=== PATIENT | male | born 1940 | race Caucasian/White ===

== ENCOUNTER 2020-09-27 21:28 | Inpatient (IN) | payer OTHER ==
[~2020-09-27] VITALS: Ht 167.6 cm; Wt 79.4 kg
[2020-09-27 22:12] LABS: HEMATOCRIT 28 % (39-51); HEMOGLOBIN 8.6 g/dL (13.5-17.5); MONOCYTES # (AUTO) 0.2 /CMM (0.1-1.30)
[2020-09-27 22:15] LABS: EOSINOPHILS % (AUTO) 0.6 % (0.0-6.0); LYMPHOCYTES # (AUTO) 0.8 /CMM (0.8-4.8); LYMPHOCYTES % (AUTO) 5.9 % (20.0-44.0); MEAN CORPUSCULAR HGB CONC 31 g/dl (31.0-36.0); MEAN CORPUSCULAR VOLUME 97 fL (80-96); MONOCYTES % (AUTO) 1.5 % (2.0-12.0); PLATELET COUNT (AUTO) 248 /CMM (150-450); RED BLOOD CELL COUNT(AUTO) 2.86 MIL/uL (4.5-6.0); WHITE BLOOD COUNT (AUTO) 14.1 K/uL (4.3-11.0)
[2020-09-27 22:20] LABS: BILIRUBIN,URINE Negative (NEGATIVE); COLOR,URINE YELLOW (YELLOW); LEUKOCYTE ESTERASE ,URINE Negative (NEGATIVE); NITRITE, URINE Negative (NEGATIVE); PH,URINE 6.5 (5.0-8.0); PROTEIN,URINE 100 mg/dl (NEGATIVE); UGLUCOSE Negative (NEGATIVE); UROBILINOGEN,URINE 0.2 EU/dL (0.2)
--- NOTE | 2020-09-27 22:22 | NUR ---
[facility]QUELINE FROM [facility]. TO ER BED 5. NON VERBAL, VENT AND TRACH DEPENDENT. BED BOUND. PT WAS SENT BY PMD FOR ABNORMAL LAB. PT HAS A REPROTED ELEVATED BUN OF 108. MD WAS AT THE BEDSIDE FOR EVAL ORDERS RECEIVED, NOTED AND CARRIED OUT. IV LINE ESTABLISHED ON R HAND 20G. PT HAND ANOTHER ONE ON THE R HAND BUT REMOVED DT NOT WORKING. PT IS NOTED WITH GT. SHILEY 8. VENT SETTING AC24 VT500 40%O2 +5PEEP. NO DISTRESS. URINE COLLECTED BY IN AND OUT WITH STRICT STERILE TECHNIQUE. COVID SWAB DONE AND SENT WELL.
[2020-09-27 22:26] LABS: BACTERIA,URINE Moderate /HPF (None Seen); RBC,URINE 0-2 /HPF (0-2); SQUAMOUS EPITHELIAL CELL,UR 0-2 /HPF (None Seen); WBC,URINE 0-2 /HPF (0-3)
[2020-09-27 22:37] LABS: ALANINE AMINOTRANSFERASE 57 U/L (12-78); ALBUMIN 1.8 g/dL (3.4-5.0); ALKALINE PHOSPHATASE 99 U/L (46-116); ASPARTATE AMINOTRANSFERASE 31 U/L (15-37); B-TYPE NATRIURETIC PEPTIDE 630 PG/ML (0-125); BILIRUBIN,DIRECT 0.1 mg/dL (0.0-0.2); BILIRUBIN,TOTAL 0.2 mg/dL (0.2-1.0); CALCIUM, SERUM 8.7 mg/dL (8.5-10.1); CARBON DIOXIDE 29 mmol/L (21-32); CHLORIDE 118 mmol/L (98-107); CREATININE 2.9 mg/dL (0.6-1.3); GLUCOSE 199 mg/dL (74-106); POTASSIUM 4.9 mmol/L (3.5-5.1); SODIUM SERUM 155 mmol/L (136-145); TOTAL PROTEIN, SERUM 6.9 g/dL (6.4-8.2)
[2020-09-27 22:38] LABS: UREA NITROGEN, BLOOD 118 mg/dL (7-18)
[2020-09-27] MEDS ORDERED: IV NS 0.9% 1,000 ML IV ONE (23:30)
[2020-09-28] MEDS ORDERED: HEPA500039 SQ (00:09)
[2020-09-28] MEDS ORDERED: AMIO200T5 GT (00:09)
[2020-09-28] MEDS ORDERED: PRED20TA GT (00:09)
[2020-09-28] MEDS ORDERED: FAMO20TA8 GT (00:09)
[2020-09-28] MEDS ORDERED: INSU100I26 SQ (00:09)
[2020-09-28] MEDS ORDERED: EPOE40002 SQ (00:09)
[2020-09-28] MEDS ORDERED: ASPI-1169 GT (00:09)
[2020-09-28] MEDS ORDERED: CLON0.1T GT (00:09)
[2020-09-28] MEDS ORDERED: LINA5TAB GT (00:09)
[2020-09-28] MEDS ORDERED: INSU100V27 SQ (00:09)
[2020-09-28] MEDS ORDERED: CHOL200074 GT (00:09)
[2020-09-28] MEDS ORDERED: AMLO5TAB4 PO (00:09)
[2020-09-28] MEDS ORDERED: TAMS-12 GT (00:09)
[2020-09-28] MEDS ORDERED: CARV25TA2 GT (00:09)
[2020-09-28] MEDS ORDERED: SIMV-46 GT (00:09)
[2020-09-28] MEDS ORDERED: FINA5TAB3 GT (00:09)
[2020-09-28] MEDS ORDERED: HYDR-4077 GT (00:09)
[2020-09-28] MEDS ORDERED: EPOETIN ALFA (4000 UNIT) 4,000 UNIT/ML VIAL SQ SCH (00:30)
[2020-09-28] MEDS ORDERED: DEXTROSE 50%-WATER 50 ML DISP.SYRIN IV PRN (00:30)
[2020-09-28] MEDS ORDERED: IV NS 0.9% 1,000 ML IV PRN (00:30)
[2020-09-28] MEDS ORDERED: ONDANSETRON HCL/PF 4 MG/2 ML VIAL IVP PRN (01:00)
[2020-09-28] MEDS ORDERED: MAG HYDROX/AL HYDROX/SIMETH 30 ML UDC PO PRN (01:00)
[2020-09-28] MEDS ORDERED: VANCOMYCIN 1.5 GM in IV D5W 500ml IV ONE (01:00)
[2020-09-28] MEDS ORDERED: ACETAMINOPHEN 325 MG TABLET PO PRN (01:00)
[2020-09-28] MEDS ORDERED: MAGNESIUM HYDROXIDE 30 ML UDC PO PRN (01:00)
[2020-09-28] MEDS ORDERED: HYDROCODONE/APAP 5/325MG TABLET PO PRN (01:00)
--- NOTE | 2020-09-28 01:21 | NUR ---
REPORT GIVEN TO MARIBELL FOR ANNI
[2020-09-28 01:30] VITALS: BP 121/65
--- NOTE | 2020-09-28 01:30 | NUR ---
pt transferred to 1st floor
[2020-09-28] MEDS: IV 1/2NS 1000 ML 1,000 ML IV PRN ×3 (02:07→17:27)
[2020-09-28] MEDS ORDERED: VANCOMYCIN 1 GM VIAL ONE (02:15)
--- NOTE | 2020-09-28 02:43 | NUR ---
Pt transported to room 106. Vent plugged in red outlet w alarms set and audible. Trach is secure and patent. Bmv @ hob. No resp distress noted @ this time. Will continue to monitor. Addendum: 09/28/20 at 0245 by IRIS TORRES RT Amended: Links added.
[2020-09-28] MEDS ORDERED: MEROPENEM 1 G VIAL IV ONE (02:46)
[2020-09-28] MEDS ORDERED: MEROPENEM 1 G in IV NS 0.9% 100 ML IV ONE (05:00)
[2020-09-28] MEDS: BLOOD SUGAR DIAGNOSTIC 1 EACH STRIP IN SCH ×4 (05:26→23:20)
--- NOTE | 2020-09-28 07:43 | NUR ---
PT RECEIVED ON PRESCRIBED VENT SETTINGS: SHILEY 8, AC 24, TV 450, 40% FIO2, PEEP 5. NO SOB. PT HAS RIGHT HAND #22 RUNNING 1/2 NS AT 70 ML/HR. NO SIGNS OF INFECTION OR INFILTRATION. PT BUE EDEMATOUS WITH MULTIPLE SKIN BRUISES AND WOUNDS, PICTURES IN CHART AND WOUND CARE CONSULT PREVIOUSLY ORDERED. ALL SAFETY MEASURES IN PLACE. WILL CONTINUE TO MONITOR
[2020-09-28 08:00] VITALS: BP 119/69
[2020-09-28] MEDS: ASPIRIN 81 MG TAB.CHEW GT SCH (08:13)
[2020-09-28] MEDS: FAMOTIDINE (20 MG) 20 MG TABLET GT SCH (08:14)
[2020-09-28] MEDS: CHOLECALCIFEROL 1,000 UNIT TABLET (VIT D3) GT SCH (08:14)
[2020-09-28] MEDS: FINASTERIDE (5 MG) 5 MG TABLET GT SCH (08:14)
[2020-09-28] MEDS: TAMSULOSIN 0.4 MG CAP.SR.24H GT SCH (08:14)
[2020-09-28] MEDS: AMLODIPINE BESYLATE 5 MG TABLET PO SCH ×2 (08:16→17:08)
[2020-09-28] MEDS: HEPARIN SODIUM, PORCINE 5000 UNITS/1 ML VIAL SQ SCH ×2 (08:17→20:23)
[2020-09-28] MEDS: LINAGLIPTIN 5 MG TABLET GT SCH (08:22)
[2020-09-28] MEDS: CLONIDINE HCL 0.1 MG TABLET GT SCH ×2 (08:23→20:23)
[2020-09-28] MEDS: hydrALAZINE HCL 50 MG TABLET GT SCH ×3 (08:36→17:00)
[2020-09-28] MEDS ORDERED: AMIODARONE HCL 200 MG TABLET GT SCH (09:00)
[2020-09-28] MEDS ORDERED: SIMVASTATIN 20 MG TABLET GT SCH (09:00)
[2020-09-28 10:31] LABS: BASOPHILS % (AUTO) 0.1 % (0.0-2.0); EOSINOPHILS % (AUTO) 0.2 % (0.0-6.0); HEMATOCRIT 26 % (39-51); HEMOGLOBIN 8.1 g/dL (13.5-17.5); LYMPHOCYTES # (AUTO) 1.1 /CMM (0.8-4.8); LYMPHOCYTES % (AUTO) 8.3 % (20.0-44.0); MEAN CORPUSCULAR HGB CONC 31 g/dl (31.0-36.0); MEAN CORPUSCULAR VOLUME 98 fL (80-96); MONOCYTES # (AUTO) 0.6 /CMM (0.1-1.30); MONOCYTES % (AUTO) 4.5 % (2.0-12.0); NEUTROPHILS # (AUTO) 11.1 /CMM (1.8-8.9); NEUTROPHILS % (AUTO) 86.9 % (43.0-81.0); PLATELET COUNT (AUTO) 229 /CMM (150-450); RED BLOOD CELL COUNT(AUTO) 2.69 MIL/uL (4.5-6.0); WHITE BLOOD COUNT (AUTO) 12.8 K/uL (4.3-11.0)
[2020-09-28 11:12] LABS: THYROID STIMULATING HORMONE 1.029 uIU/mL (0.358-3.74)
[2020-09-28 11:34] LABS: ALANINE AMINOTRANSFERASE 49 U/L (12-78); ALBUMIN 1.8 g/dL (3.4-5.0); ALKALINE PHOSPHATASE 87 U/L (46-116); ASPARTATE AMINOTRANSFERASE 29 U/L (15-37); BILIRUBIN,TOTAL 0.2 mg/dL (0.2-1.0); CALCIUM, SERUM 8.3 mg/dL (8.5-10.1); CARBON DIOXIDE 26 mmol/L (21-32); CHLORIDE 118 mmol/L (98-107); CREATININE 2.6 mg/dL (0.6-1.3); GLUCOSE 155 mg/dL (74-106); MAGNESIUM 3.7 mg/dL (1.8-2.4); PHOSPHORUS 5.9 mg/dL (2.5-4.9); POTASSIUM 4.8 mmol/L (3.5-5.1); TOTAL PROTEIN, SERUM 6.9 g/dL (6.4-8.2)
[2020-09-28] MEDS: GLUCERNA 1.2 1,000 ML BOTTLE GT PRN (11:45)
[2020-09-28 12:00] VITALS: BP 122/63
[2020-09-28 12:18] LABS: SODIUM SERUM 156 mmol/L (136-145); UREA NITROGEN, BLOOD 108 mg/dL (7-18)
--- NOTE | 2020-09-28 12:38 | NUR ---
dr. boo notified regarding elevated sodium no new orders.
--- NOTE | 2020-09-28 13:39 | NUR ---
DR DUGGAN AWARE OF SODIUM 156 AND BUN/CR OF 108/2.6. NO NEW ORDERS RECEIVED. PT ALREADY RUNNING 1/2 NS @ 70 ML/HR ORDERED
[2020-09-28 16:00] VITALS: BP 109/56
[2020-09-28] MEDS: MEROPENEM 1 G in IV NS 0.9% 100 ML IV SCH (17:08)
[2020-09-28] MEDS: Z GUARD REMEDY 2 OZ OINT TP PRN (17:30)
--- NOTE | 2020-09-28 17:30 | NUR ---
PT 1700 HYDRALAZINE NON-ADMIN, BP 109/56, NORVASC GIVEN
[2020-09-28 17:31] LABS: BILIRUBIN,URINE NEGATIVE (NEGATIVE); COLOR,URINE YELLOW (YELLOW); LEUKOCYTE ESTERASE ,URINE NEGATIVE (NEGATIVE); NITRITE, URINE NEGATIVE (NEGATIVE); PROTEIN,URINE 30 mg/dl (NEGATIVE); UGLUCOSE NEGATIVE (NEGATIVE); UROBILINOGEN,URINE 0.2 EU/dL (0.2)
[2020-09-28 17:41] LABS: CREATININE, URINE 33.1 MG/DL (30.0-125.0)
--- NOTE | 2020-09-28 18:28 | NUR ---
PT REMAINS IN BED ON VENT SETTINGS, SHILEY #8, AC 24, TV 450, FIO2 40%, PEEP 0. NO RESPIRATORY DISTRESS OR SOB. ALL WOUND CARE COMPLETED THIS SHIFT; PT STILL AWAITS WOUND CONSULT. PT ON MONITOR SHOWING SB-SR- 50-60. PT HAS METZGER DRAINING YELLOW CLEAR URINE. PT GT RUNNING GLUCERNA 1.2 AT 50 ML/HR. PT RIGHT HAND 22 RUNNING 1/2 NS AT 70 ML/HR. NO SIGNS OF INFECTION OR INFILTRATION. ALL NEEDS TO BE ENDORSED TO ONCOMING RN
[2020-09-28 18:43] LABS: BACTERIA,URINE RARE /HPF (None Seen); RBC,URINE 0-2 /HPF (0-2); SQUAMOUS EPITHELIAL CELL,UR 0-2 /HPF (None Seen)
[2020-09-28 18:47] LABS: EOSINOPHIL,URINE None Seen
--- NOTE | 2020-09-28 19:20 | NUR ---
RECEIVED PT ON BED OPEN EYES TO STIMULI, ON TRACH/VENT SETTING PER MD FIO2 40% SPO2 100% NO DISTRESS OR PAIN NOTED, TELE MONITOR READS SINUS HEVER 50'S HAVE GTUBE ON PLACE, PLACEMENT AND RESIDUAL CHECKED, RESIDUAL 5ML WITH ONGOING GLUCERNA @ 50ML/HR ,HAVE METZGER DRAINING YELLOW URINE THRU GRAVITY, HAVE RIGHT HAND # 22 PATENT AND FLUSHED WITH ONGOING 1/2 NS @ 70ML/HR INFUSING WELL BED ON LOWEST POSITION NAD LOCKED SIDE RAILS UP X2 CALL LIGHT WITHIN REACH WILL CONT TO MONITOR
--- NOTE | 2020-09-28 19:58 | NUR ---
RT pt received on mechanical vent with current settings. trached, shiley 8 cuffed. vent plugged in to red outlet. trach secure. ambu bag at [facility]. spare trach at bedside. minimal thick white secretions suctioned via trach. no sob, no resp distress at this time. will continue to monitor.
[2020-09-28 20:00] VITALS: BP 106/61
[2020-09-28] MEDS: INSULIN REGULAR, HUMAN 100 UNIT/ML 3 ML VIAL SQ PRN (23:20)
[2020-09-29] VITALS: BP 113/54
[2020-09-29 04:00] VITALS: BP 101/57
[2020-09-29] MEDS: MEROPENEM 1 G in IV NS 0.9% 100 ML IV SCH ×2 (04:02→16:49)
[2020-09-29] MEDS: Z GUARD REMEDY 2 OZ OINT TP PRN (04:03)
[2020-09-29] MEDS: GLUCERNA 1.2 1,000 ML BOTTLE GT PRN (05:30)
[2020-09-29] MEDS: VANCOMYCIN 1 GM in IV D5W 250 ML IV SCH (05:30)
[2020-09-29] MEDS: IV 1/2NS 1000 ML 1,000 ML IV PRN ×2 (05:31→22:31)
[2020-09-29] MEDS: BLOOD SUGAR DIAGNOSTIC 1 EACH STRIP IN SCH ×4 (05:47→23:47)
[2020-09-29] MEDS: INSULIN REGULAR, HUMAN 100 UNIT/ML 3 ML VIAL SQ PRN ×3 (05:49→23:39)
[2020-09-29 06:20] LABS: BASOPHILS # (AUTO) 0.1 /CMM (0.0-0.2); BASOPHILS % (AUTO) 0.5 % (0.0-2.0); EOSINOPHILS % (AUTO) 4.1 % (0.0-6.0); HEMATOCRIT 27 % (39-51); HEMOGLOBIN 8.6 g/dL (13.5-17.5); LYMPHOCYTES # (AUTO) 0.9 /CMM (0.8-4.8); LYMPHOCYTES % (AUTO) 7.4 % (20.0-44.0); MEAN CORPUSCULAR HGB CONC 32 g/dl (31.0-36.0); MEAN CORPUSCULAR VOLUME 96 fL (80-96); MONOCYTES # (AUTO) 0.7 /CMM (0.1-1.30); MONOCYTES % (AUTO) 5.9 % (2.0-12.0); NEUTROPHILS % (AUTO) 82.1 % (43.0-81.0); PLATELET COUNT (AUTO) 268 /CMM (150-450); RED BLOOD CELL COUNT(AUTO) 2.81 MIL/uL (4.5-6.0); WHITE BLOOD COUNT (AUTO) 12.1 K/uL (4.3-11.0)
--- NOTE | 2020-09-29 06:48 | NUR ---
PT ON BED OPEN EYES TO STIMULI STILL ON TRACH VENT SETTING PER MD SPO2 98 % TELE MONITOR READS SINUS HEVER 50S NO DISTRESS NOTED NO PAIN NOTED NO SIGNIFICANT CHANGES ON CONDITION NOTED ALL NEEDS ATTENDED WOUND TREATMENT DONE, BED ON LOWEST POSITION AND LOCKED SIDE RAILS UP X2 CALL LIGHT WITHIN REACH WILL ENDORSED TO AM SHIFT NURSE
[2020-09-29 06:58] LABS: ALANINE AMINOTRANSFERASE 47 U/L (12-78); ALBUMIN 1.7 g/dL (3.4-5.0); ALKALINE PHOSPHATASE 100 U/L (46-116); ASPARTATE AMINOTRANSFERASE 28 U/L (15-37); BILIRUBIN,TOTAL 0.2 mg/dL (0.2-1.0); CALCIUM, SERUM 8.2 mg/dL (8.5-10.1); CARBON DIOXIDE 25 mmol/L (21-32); CHLORIDE 118 mmol/L (98-107); CREATININE 2.2 mg/dL (0.6-1.3); GLUCOSE 176 mg/dL (74-106); MAGNESIUM 3.5 mg/dL (1.8-2.4); PHOSPHORUS 5.5 mg/dL (2.5-4.9); POTASSIUM 4.8 mmol/L (3.5-5.1); SODIUM SERUM 152 mmol/L (136-145); TOTAL PROTEIN, SERUM 6.1 g/dL (6.4-8.2)
[2020-09-29 07:00] LABS: UREA NITROGEN, BLOOD 97 mg/dL (7-18)
[2020-09-29 07:03] LABS: CHOLESTEROL 91 mg/dL (<200); CREATINE KINASE, TOTAL 48 U/L (39-308); FERRITIN 811 ng/mL (8-388); HDL CHOLESTEROL 17 mg/dL (40-60); LDL 47 mg/dL (0-99); TRIGLYCERIDES 341 mg/dL (30-150)
--- NOTE | 2020-09-29 08:30 | NUR ---
RESOURCE MANAGER NOTES PATIENT RECEIVED FROM RN. PATIENT IN BED, NON-VERBAL, ABLE TO OPEN AND CLOSE EYES. TRACH INTACT AND IN PLACE, TOLERATING SETTINGS WELL, NO RESPIRATORY DISTRESS NOTED AT THIS TIME. PATIENT SKIN WARM AND DRY TO TOUCH WITH MULTIPLE WOUNDS NOTED. ON AUTOMOTIVE SERVICE MANAGEMENT TEACHER. METZGER CATHETER INTACT AND IN PLACE. G-TUBE SITE CLEAN AND DRY, CURRENTLY INFUSING FEEDING AT 50mL/hr NO RESIDUAL NOTED. PATIENT PRESENTING WITH NO PAIN OR DISCOMFORT AT THIS TIME. SAFETY PRECAUTIONS IMPLEMENTED WITH BED LOCKED, BED IN THE LOWEST POSITION, BILATERAL SIDE RAILS UP, HOB ELEVATED, BED ALARM ON, AND CALL LIGHT WITH IN EASY REACH. WILL CONTINUE TO MONITOR PATIENT.
[2020-09-29] MEDS: hydrALAZINE HCL 50 MG TABLET GT SCH ×3 (09:00→16:49)
[2020-09-29] MEDS: AMLODIPINE BESYLATE 5 MG TABLET PO SCH ×2 (09:00→16:49)
[2020-09-29] MEDS: CLONIDINE HCL 0.1 MG TABLET GT SCH ×2 (09:00→21:43)
[2020-09-29] MEDS: FINASTERIDE (5 MG) 5 MG TABLET GT SCH (09:21)
[2020-09-29] MEDS: LINAGLIPTIN 5 MG TABLET GT SCH (09:21)
[2020-09-29] MEDS: FAMOTIDINE (20 MG) 20 MG TABLET GT SCH (09:21)
[2020-09-29] MEDS: ASPIRIN 81 MG TAB.CHEW GT SCH (09:21)
[2020-09-29] MEDS: TAMSULOSIN 0.4 MG CAP.SR.24H GT SCH (09:21)
[2020-09-29] MEDS: CHOLECALCIFEROL 1,000 UNIT TABLET (VIT D3) GT SCH (09:22)
[2020-09-29] MEDS: AMIODARONE HCL 200 MG TABLET GT SCH (09:22)
[2020-09-29] MEDS: HEPARIN SODIUM, PORCINE 5000 UNITS/1 ML VIAL SQ SCH ×2 (09:24→21:45)
[2020-09-29 09:30] VITALS: BP 118/51
[2020-09-29 12:00] VITALS: BP 117/73
[2020-09-29 16:00] VITALS: BP 127/55
--- NOTE | 2020-09-29 18:40 | NUR ---
STEEL HANDLER NOTES PATIENT IN BED RESTING COMFORTABLY, NON-VERBAL, ABLE TO OPEN AND CLOSE EYES. TRACH INTACT AND IN PLACE, TOLERATING SETTINGS WELL, NO RESPIRATORY DISTRESS NOTED AT THIS TIME. PATIENT SKIN KEPT CLEAN, WARM AND DRY TO TOUCH WITH MULTIPLE WOUNDS NOTED. ON CAM MAKER. METZGER CATHETER INTACT AND IN PLACE. G-TUBE SITE CLEAN AND DRY, CURRENTLY INFUSING FEEDING AT 50mL/hr NO RESIDUAL NOTED. PATIENT PRESENTING WITH NO PAIN OR DISCOMFORT AT THIS TIME. MET ALL OF PATIENT'S NEEDS. IV ACCESS INTACT AND PATENT. SAFETY PRECAUTIONS IMPLEMENTED WITH BED LOCKED, BED IN THE LOWEST POSITION, BILATERAL SIDE RAILS UP, HOB ELEVATED, BED ALARM ON, AND CALL LIGHT WITH IN EASY REACH. WILL ENDORSE PLAN OF CARE TO UPCOMING RN.
--- NOTE | 2020-09-29 18:45 | NUR ---
MOBILE ELECTRONICS INSTALLER NOTE PATIENT ARRIVED FROM [place] BY BED. PATIENT ON VENT, TOLERATING VENT SETTINGS WELL. PATIENT IN BED RESTING COMFORTABLY. PATIENT IN NO ACUTE DISTRESS. NO SOB NOTED. PATIENT BREATHING IS EVEN AND UNLABORED. PATIENT SAFETY PRECAUTIONS IN PLACE. PATIENT BP 135/58, HR 71 SINUS RHYTHM, RR 18, SPO2 100%. PATIENT BED IS LOCKED AND IN LOWEST POSITION. CALL LIGHT WITHIN REACH. WILL ENDORSE CARE TO PM SHIFT FOR ANNI.
--- NOTE | 2020-09-29 19:52 | NUR ---
TRANSPORT AIDE OPENING NOTES PATIENT A/OX1; OPENS EYES TO NAME. PATIENT ON VENT, TOLERATING VENT SETTINGS WELL. ON EXTERNAL CARDIAC TELE MONITORING; READS SR AND HR AT 70'S. PATIENT IN BED RESTING COMFORTABLY. PATIENT IN NO ACUTE DISTRESS. NO SOB NOTED. PATIENT BREATHING IS EVEN AND UNLABORED. METZGER CATHETER PATENT AND INTACT; DRAINING CLEAR YELLOW URINE. GTUBE PEG PATENT AND INTACT; GLUCERNA 1.2 @ 50ML/HR. IV ON R HAND #22 INFUSING 1/2 NS @ 70ML/HR; PATENT AND INTACT. PATIENT SAFETY PRECAUTIONS IN PLACE; PATIENT BED IS LOCKED AND IN LOWEST POSITION. CALL LIGHT WITHIN REACH. SIDE RAILS UPX3. WILL CONTINUE PLAN OF CARE.
[2020-09-29 20:00] VITALS: BP_SYST 115; BP_SYST 125; BP_DIAS 57; BP_DIAS 71
[2020-09-30] VITALS: BP_SYST 125; BP_SYST 137; BP_DIAS 57; BP_DIAS 63
--- NOTE | 2020-09-30 02:30 | NUR ---
CUSTOMER GREETER NOTES LAB CALLED AND REPORTED PATIENT NOTED WITH POSITIVE BLOOD CULTURE OF GRAM POSITIVE COCCI IN CLUSTERS. NOTIFIED EHNRY JEFFERS NP. WILL ENDORSE IN AM TO NOTIFY INFECTIOUS DISEASE SPECIALIST.
[2020-09-30 04:00] VITALS: BP_SYST 136; BP_SYST 137; BP_DIAS 57; BP_DIAS 62
[2020-09-30] MEDS: MEROPENEM 1 G in IV NS 0.9% 100 ML IV SCH (05:58)
[2020-09-30] MEDS: VANCOMYCIN 1 GM in IV D5W 250 ML IV SCH (07:05)
[2020-09-30 07:06] LABS: PTH, INTACT 56 pg/mL (15-65)
[2020-09-30] MEDS: BLOOD SUGAR DIAGNOSTIC 1 EACH STRIP IN SCH ×4 (07:34→23:50)
[2020-09-30] MEDS: INSULIN REGULAR, HUMAN 100 UNIT/ML 3 ML VIAL SQ PRN ×4 (07:35→23:48)
[2020-09-30] MEDS: GLUCERNA 1.2 1,000 ML BOTTLE GT PRN (07:35)
--- NOTE | 2020-09-30 07:38 | NUR ---
MS/RN OPENING NOTES RECEIVED PATIENT ON BED, AWAKE ALERT AND ORIENTED X1. PATIENT IS ON TRACH AND VENT DEPENDENT AT THE PRESCRIBED SETTINGS. PATIENT IN NO APPARENT RESPIRATORY DISTRESS NOTED. NO SIGN AND SYMPTOM OF PAIN AT THIS TIME. WILL CONTINUE TO MONITOR.
[2020-09-30 07:40] LABS: ALANINE AMINOTRANSFERASE 33 U/L (12-78); ALBUMIN 1.6 g/dL (3.4-5.0); ALKALINE PHOSPHATASE 86 U/L (46-116); ASPARTATE AMINOTRANSFERASE 24 U/L (15-37); BILIRUBIN,TOTAL 0.2 mg/dL (0.2-1.0); CALCIUM, SERUM 8.3 mg/dL (8.5-10.1); CARBON DIOXIDE 22 mmol/L (21-32); CHLORIDE 116 mmol/L (98-107); CREATININE 1.8 mg/dL (0.6-1.3); GLUCOSE 179 mg/dL (74-106); MAGNESIUM 3.4 mg/dL (1.8-2.4); PHOSPHORUS 4.6 mg/dL (2.5-4.9); POTASSIUM 5.2 mmol/L (3.5-5.1); SODIUM SERUM 147 mmol/L (136-145); TOTAL PROTEIN, SERUM 5.9 g/dL (6.4-8.2); UREA NITROGEN, BLOOD 72 mg/dL (7-18)
[2020-09-30 07:48] LABS: BASOPHILS # (AUTO) 0.1 /CMM (0.0-0.2); BASOPHILS % (AUTO) 0.5 % (0.0-2.0); EOSINOPHILS % (AUTO) 7.7 % (0.0-6.0); HEMATOCRIT 27 % (39-51); HEMOGLOBIN 8.7 g/dL (13.5-17.5); LYMPHOCYTES % (AUTO) 10.7 % (20.0-44.0); MEAN CORPUSCULAR HGB CONC 32 g/dl (31.0-36.0); MEAN CORPUSCULAR VOLUME 96 fL (80-96); MONOCYTES # (AUTO) 0.8 /CMM (0.1-1.30); MONOCYTES % (AUTO) 8.2 % (2.0-12.0); NEUTROPHILS # (AUTO) 7.1 /CMM (1.8-8.9); NEUTROPHILS % (AUTO) 72.9 % (43.0-81.0); PLATELET COUNT (AUTO) 283 /CMM (150-450); RED BLOOD CELL COUNT(AUTO) 2.82 MIL/uL (4.5-6.0); WHITE BLOOD COUNT (AUTO) 9.7 K/uL (4.3-11.0)
[2020-09-30 08:00] VITALS: BP 145/66
--- NOTE | 2020-09-30 08:35 | NUR ---
ACCOUNT EXECUTIVE CLOSING NOTES PATIENT A/OX1; OPENS EYES TO NAME. PATIENT ON VENT, TOLERATING VENT SETTINGS WELL. ON EXTERNAL CARDIAC TELE MONITORING; READS SR AND HR AT 67. PATIENT IN BED RESTING COMFORTABLY. PATIENT IN NO ACUTE DISTRESS. NO SOB NOTED. PATIENT BREATHING IS EVEN AND UNLABORED. METZGER CATHETER PATENT AND INTACT; DRAINING CLEAR YELLOW URINE. GTUBE PEG PATENT AND INTACT; GLUCERNA 1.2 @ 50ML/HR. IV ON R HAND #22; INFUSING 1/2 NS @ 70ML/HR; PATENT AND INTACT. PATIENT SAFETY PRECAUTIONS IN PLACE; PATIENT BED IS LOCKED AND IN LOWEST POSITION. CALL LIGHT WITHIN REACH. SIDE RAILS UPX3. ENDORSED ANNI TO ONCOMING MORNING RN.
[2020-09-30] MEDS: CHOLECALCIFEROL 1,000 UNIT TABLET (VIT D3) GT SCH (09:04)
[2020-09-30] MEDS: TAMSULOSIN 0.4 MG CAP.SR.24H GT SCH (09:05)
[2020-09-30] MEDS: FAMOTIDINE (20 MG) 20 MG TABLET GT SCH (09:05)
[2020-09-30] MEDS: CLONIDINE HCL 0.1 MG TABLET GT SCH ×2 (09:05→21:00)
[2020-09-30] MEDS: FINASTERIDE (5 MG) 5 MG TABLET GT SCH (09:05)
[2020-09-30] MEDS: AMIODARONE HCL 200 MG TABLET GT SCH (09:05)
[2020-09-30] MEDS: ASPIRIN 81 MG TAB.CHEW GT SCH (09:05)
[2020-09-30] MEDS: hydrALAZINE HCL 50 MG TABLET GT SCH ×3 (09:06→16:38)
[2020-09-30] MEDS: AMLODIPINE BESYLATE 5 MG TABLET PO SCH ×2 (09:06→16:38)
[2020-09-30] MEDS: LINAGLIPTIN 5 MG TABLET GT SCH (09:06)
[2020-09-30] MEDS: HEPARIN SODIUM, PORCINE 5000 UNITS/1 ML VIAL SQ SCH ×2 (09:10→22:37)
[2020-09-30] MEDS: IV 1/2NS 1000 ML 1,000 ML IV PRN (09:35)
[2020-09-30 12:00] VITALS: BP 117/54
--- NOTE | 2020-09-30 12:53 | NUR ---
TELE/RN NOTES BP 101/47 P 58 HYDRALAZINE 50MG 1 TAB WAS WITH HELD. WILL CONTINUE TO MONIOTR.
[2020-09-30 13:44] LABS: BAND % (MANUAL) 1 % (0.0-5.0); EOSINOPHILS % (MANUAL) 12 % (0-4); LYMPHOCYTES % (MANUAL) 6 % (16-48); METAMYELOCYTES % 1 % (0-0); MONOCYTES % (MANUAL) 5 % (0-11.0); MYELOCYTES % 1 % (0-0); NEUTROPHILS % (MANUAL) 74 (42-76)
[2020-09-30 14:07] LABS: *SPE A/G RATIO 0.5 (0.7-1.7); *SPE ALBUMIN 1.9 g/dL (2.9-4.4); *SPE ALPHA-1-GLOBULIN 0.2 g/dL (0.0-0.4); *SPE BETA GLOBULIN 0.9 g/dL (0.7-1.3); *SPE GLOBULIN, TOTAL 3.7 g/dL (2.2-3.9); *SPE M-SPIKE Not Observed g/dL (Not Observed); *SPEGAMMA GLOBULIN 1.5 g/dL (0.4-1.8)
[2020-09-30 16:00] VITALS: BP 123/58
--- NOTE | 2020-09-30 19:02 | NUR ---
TELE/RN CLOSING NOTES PATIENT IS ON BED. PATIENT IS ON VENT AND TRACH DEPENDENT AT THE PRESCRIBED SETTINGS. PATIENT IN NO APPARENT RESPIRATORY DISTRESS NOTED. NO SIGN AND SYMPTOM OF PAIN NOTED AT THIS TIME. TELE MONITOR READING SINUS HEVER 59 BPM. SEEN AND EXAMINED BY MD WITH ORDERS MADE AND CARRIED OUT. ALL DUE MEDICATIONS WAS GIVEN. SAFETY PRECAUTIONS WAS IN PLACED. BED IN LOWEST POSITION AND LOCKED. SIDE RAILS UP X2. CALL LIGHT WITHIN REACH. WILL ENDORSED TO SUPERVISOR SHAVING AND SPLITTING FOR ANNI.
[2020-09-30 20:00] VITALS: BP 99/56
[2020-10-01] VITALS: BP 103/48
[2020-10-01] MEDS: GLUCERNA 1.2 1,000 ML BOTTLE GT PRN (03:52)
[2020-10-01 04:00] VITALS: BP 106/54
--- NOTE | 2020-10-01 04:02 | NUR ---
RIGHT HAND IV REMOVED BY LEX BUCHANAN LAST NIGHT AT 2134. MIDLINE INSERTED BY LEX GALAN ON THE RIGHT UPPER ARM.
[2020-10-01] MEDS: INSULIN REGULAR, HUMAN 100 UNIT/ML 3 ML VIAL SQ PRN ×2 (06:38→11:56)
[2020-10-01] MEDS: BLOOD SUGAR DIAGNOSTIC 1 EACH STRIP IN SCH ×3 (06:40→18:01)
--- NOTE | 2020-10-01 07:46 | NUR ---
MS/RN OPENING NOTES RECEIVED PATIENT ON BED,NONVERBAL. PATIENT IS ON TRACH AND VENT DEPENDENT AT THE PRESCRIBED SETTINGS. PATIENT IN NO APPARENT RESPIRATORY DISTRESS NOTED. NO SIGN AND SYMPTOM OF PAIN AT THIS TIME. WILL CONTINUE TO MONITOR.
[2020-10-01 08:00] VITALS: BP 109/64
[2020-10-01] MEDS ORDERED: VANCOMYCIN 1 GM in IV D5W 250 ML IV SCH (08:00)
[2020-10-01 08:29] LABS: CALCIUM, SERUM 8.8 mg/dL (8.5-10.1); CARBON DIOXIDE 23 mmol/L (21-32); CHLORIDE 116 mmol/L (98-107); CREATININE 1.7 mg/dL (0.6-1.3); GLUCOSE 188 mg/dL (74-106); POTASSIUM 5.4 mmol/L (3.5-5.1); SODIUM SERUM 148 mmol/L (136-145); UREA NITROGEN, BLOOD 63 mg/dL (7-18)
[2020-10-01 08:32] LABS: MAGNESIUM 3.2 mg/dL (1.8-2.4); PHOSPHORUS 4.8 mg/dL (2.5-4.9)
--- NOTE | 2020-10-01 08:48 | NUR ---
WOUND CARE CONSULT: PT PRESENTS WITH MULTIPLE WOUNDS, PRESENT ON ADMISSION INCLUDING UNSTAGEABLE SACRAL ULCER, RT CLAVICLE ULCER AND LOWER EXTREMITY WOUNDS. RECOMMEND SURGICAL AND DPM CONSULTS. DR ERNESTINE JENKINS AND DR SMITH NOTIFIED OF CONSULT REQUESTS. RECOMMENDATIONS MADE FOR WOUND CARE AND SKIN PROTECTION. DISCUSSED WITH NURSING STAFF. DEFER TO PODIATRY FOR LOWER EXTREMITIES. FIRST STEP LOW AIRLOSS MATTRESS IS ON ORDER. MD IN AGREEMENT WITH PLAN OF CARE.
[2020-10-01] MEDS: ASPIRIN 81 MG TAB.CHEW GT SCH (08:49)
[2020-10-01] MEDS: TAMSULOSIN 0.4 MG CAP.SR.24H GT SCH (08:49)
[2020-10-01] MEDS: LINAGLIPTIN 5 MG TABLET GT SCH (08:49)
[2020-10-01] MEDS: CHOLECALCIFEROL 1,000 UNIT TABLET (VIT D3) GT SCH (08:49)
[2020-10-01] MEDS: AMIODARONE HCL 200 MG TABLET GT SCH (08:49)
[2020-10-01] MEDS: FINASTERIDE (5 MG) 5 MG TABLET GT SCH (08:49)
[2020-10-01] MEDS: FAMOTIDINE (20 MG) 20 MG TABLET GT SCH (08:49)
[2020-10-01] MEDS: CLONIDINE HCL 0.1 MG TABLET GT SCH ×2 (08:50→21:29)
[2020-10-01] MEDS: hydrALAZINE HCL 50 MG TABLET GT SCH ×3 (08:51→17:14)
[2020-10-01] MEDS: HEPARIN SODIUM, PORCINE 5000 UNITS/1 ML VIAL SQ SCH ×2 (08:52→22:00)
--- NOTE | 2020-10-01 08:53 | NUR ---
MS/RN NOTES BP 109/64 P 71 NORVASC 5MG 1 TAB P.O. HYDRALAZINE 50MG 1 TAB P.O. AND CATAPRES 0.1 MG 1 TAB, HEMOGLOBIN 8.7 HEMATOCRIT 27 PLATELET 287.HEPARIN 5000 UNIT SUBCUTANEOUS MEDICATIONS WAS WITH HELD. WILL CONTINUE TO MONITOR.
[2020-10-01] MEDS ORDERED: HYDROGEL DRESSING 90 GM TUBE TP PRN (09:00)
[2020-10-01] MEDS: AMLODIPINE BESYLATE 5 MG TABLET PO SCH ×2 (09:00→17:15)
[2020-10-01] MEDS: DAKINS QUARTER STRENGTH (0.125%) 480 ML BOTTLE TOP SCH (10:38)
[2020-10-01] MEDS: HYDROGEL DRESSING 90 GM TUBE TP SCH (10:38)
[2020-10-01] MEDS ORDERED: COLLOIDAL OATMEAL/LOTION 354 ML BOTTLE TP PRN (11:00)
[2020-10-01 12:00] VITALS: BP 104/57
--- NOTE | 2020-10-01 12:09 | NUR ---
TELE/RN NOTES BP 104/57 P 66 HYDRALAZINE 50MG 1 TAB P.O. WAS NOT GIVEN. WILL CONTINUE TO MONITOR.
[2020-10-01 16:00] VITALS: BP 127/68
[2020-10-01] MEDS ORDERED: CLOTRIMAZOLE 1% 15 GM TUBE TP SCH (17:00)
[2020-10-01] MEDS: CLOTRIMAZOLE 1% 15 GM TUBE TP SCH (17:16)
--- NOTE | 2020-10-01 18:00 | NUR ---
TELE/RN NOTES PATIENT WOUND HAVE FRESH BLOOD NOTED. WILL ENDORSED TO SENIOR PRODUCT DESIGNER RN.
--- NOTE | 2020-10-01 18:52 | NUR ---
MS/RN CLOSING NOTES PATIENT IS ON BED, NONVERBAL. PATIENT IS ON TRACH AND VENT DEPENDENT AT THE PRESCRIBED SETTINGS, SATURATION 100%. PATIENT IN NO APPARENT RESPIRATORY DISTRESS NOTED. NO SIGN AND SYMPTOM OF PAIN NOTED AT THIS TIME. GTUBE FEEDING OF GLUCERNA AT 50ML/HR ON AND INFUSING WELL. SEEN AND EXAMINED BY MD WITH ORDERS MADE AND CARRIED OUT. ALL DUE MEDICATIONS WAS GIVEN. SAFETY PRECAUTIONS WAS IN PLACED. BED IN LOWEST POSITION AND LOCKED. SIDE RAILS WAS LOCKED X2. WILL ENDORSED TO SPECIAL EVENTS FUNDRAISER FOR ANNI.
--- NOTE | 2020-10-01 19:30 | NUR ---
TELE SCROLL ASSEMBLER INITIAL NOTES RECEIVED REPORT FROM AM NURSE PHUONG/RN AND SAW PT IN BED ON SEMI FOWLERS POSITION WITH SIDE RAILS X2 UP. PATIENT ON MECHANICAL VENT SHILEY#8, TV 450, PEEP0, AC24 AND FIO2 30%. SET BY RT ORDERED. PT RESTING AT THIS TIME NO SIGNS OF ANY DISTRESS NOTED WITH G-TUBE FEEDING AT 50ML/HR NO ASPIRATION NOTED AND NO RESIDUAL NOTED WELL. HE HAS MEDLINE ON HIS RIGHT UPPER ARM PATENT AND INTACT. SINUS RHYTHM PER MONITOR , VITAL SIGNS WITHIN NORMAL LIMIT. KEPT HIM WARM AND COMFORTABLE AT ALL TIMES. WILL CONTINUE MONITORING.
[2020-10-01 20:49] VITALS: BP 135/62
--- NOTE | 2020-10-01 22:00 | NUR ---
ms ameena notes got ordered from Dr Eileen segura to hold the heparin dose due at this time but let the daytime provider tomorrow if they want to DC.
--- NOTE | 2020-10-02 00:15 | NUR ---
tele tree climber notes Blood sugar 197, 3 units of insulin given juan a SQ as ordered. Pt still on g-tube feeding Flush with 200ml water as ordered. no signs of hyper glycemia noted. Tele SR per monitor. will continue monitoring.
[2020-10-02] MEDS: BLOOD SUGAR DIAGNOSTIC 1 EACH STRIP IN SCH ×4 (00:23→17:46)
[2020-10-02] MEDS: INSULIN REGULAR, HUMAN 100 UNIT/ML 3 ML VIAL SQ PRN ×5 (00:27→23:40)
[2020-10-02 00:57] VITALS: BP 114/50
[2020-10-02] MEDS: GLUCERNA 1.2 1,000 ML BOTTLE GT PRN ×2 (04:59→16:22)
[2020-10-02 06:45] LABS: BASOPHILS # (AUTO) 0.1 /CMM (0.0-0.2); BASOPHILS % (AUTO) 0.6 % (0.0-2.0); EOSINOPHILS % (AUTO) 8.4 % (0.0-6.0); HEMATOCRIT 27 % (39-51); HEMOGLOBIN 8.8 g/dL (13.5-17.5); LYMPHOCYTES % (AUTO) 10.8 % (20.0-44.0); MEAN CORPUSCULAR HGB CONC 33 g/dl (31.0-36.0); MEAN CORPUSCULAR VOLUME 95 fL (80-96); MONOCYTES # (AUTO) 0.7 /CMM (0.1-1.30); MONOCYTES % (AUTO) 8.1 % (2.0-12.0); NEUTROPHILS # (AUTO) 6.6 /CMM (1.8-8.9); NEUTROPHILS % (AUTO) 72.1 % (43.0-81.0); PLATELET COUNT (AUTO) 306 /CMM (150-450); RED BLOOD CELL COUNT(AUTO) 2.82 MIL/uL (4.5-6.0); WHITE BLOOD COUNT (AUTO) 9.1 K/uL (4.3-11.0)
--- NOTE | 2020-10-02 07:00 | NUR ---
TELE ASSOCIATE PROFESSOR OF ENGINEERING CLOSING NOTES PT STABLE THROUGHOUT THE NIGHT. SINUS RHYTHM ON TELE MONITOR. G-TUBE FEEDING TOLERATED WELL, NO ASPIRATION NOTED. BLOOD SUGAR 166 THIS 6 AM AND 3 UNITS OF INSULIN GIVEN TRAM SQ ORDERED. MORNING CARE DONE WITH THE HELPED OF DONNA HEREDIA AND ALL WOUND DRESSINGS DRY AND INTACT. KEPT HIM WARM AND COMFORTABLE AT ALL TIMES. REPOSITION HIM FOR COMFORT. WILL ENDORSE TO AM NURSE FOR CONTINUITY OF CARE.
[2020-10-02 07:05] LABS: CALCIUM, SERUM 8.7 mg/dL (8.5-10.1); CARBON DIOXIDE 25 mmol/L (21-32); CHLORIDE 116 mmol/L (98-107); CREATININE 1.6 mg/dL (0.6-1.3); GLUCOSE 178 mg/dL (74-106); POTASSIUM 5.5 mmol/L (3.5-5.1); SODIUM SERUM 148 mmol/L (136-145); UREA NITROGEN, BLOOD 56 mg/dL (7-18)
[2020-10-02 08:00] VITALS: BP 139/64
--- NOTE | 2020-10-02 08:00 | NUR ---
RN OPENING NOTE PT IS NONVERBAL AND RESTING IN BED. PT IS ABLE TO BE AROUSED BY LIGHT PAIN, CURRENTLY ON TRACH WITH NO RESPIRATOYR DISTRESS PRESENT. O2 SAT IN HIGH 90'S TO 100%. CURRENTLY SINUS RHYTHM/TACHYCARDIA RECORDED BY EXTERNAL MONITOR. PT IS BEDBOUND. F/C PRESENT AND DRAINING WITH CLEAR YELLOW LIQUID. SKIN WOUNDS PRESENT ON L HEEL, SACRUM, L ARM, R CLAVICLE, R HIP, AND L SHOULDER. SAFETY MEASURES IN PLACE. BED LOWERED. CALL LIGHT WITHIN REACH. SIDE RAILS RAISED. WILL CONTINUE TO MONITOR,
[2020-10-02] MEDS: FAMOTIDINE (20 MG) 20 MG TABLET GT SCH (08:38)
[2020-10-02] MEDS: ASPIRIN 81 MG TAB.CHEW GT SCH ×3 (08:38→08:53)
[2020-10-02] MEDS: FINASTERIDE (5 MG) 5 MG TABLET GT SCH (08:39)
[2020-10-02] MEDS: CLONIDINE HCL 0.1 MG TABLET GT SCH ×2 (08:39→21:39)
[2020-10-02] MEDS: TAMSULOSIN 0.4 MG CAP.SR.24H GT SCH (08:39)
[2020-10-02] MEDS: CHOLECALCIFEROL 1,000 UNIT TABLET (VIT D3) GT SCH (08:39)
[2020-10-02] MEDS: LINAGLIPTIN 5 MG TABLET GT SCH (08:39)
[2020-10-02] MEDS: AMIODARONE HCL 200 MG TABLET GT SCH (08:40)
[2020-10-02] MEDS: AMLODIPINE BESYLATE 5 MG TABLET PO SCH ×2 (08:40→17:16)
[2020-10-02] MEDS: hydrALAZINE HCL 50 MG TABLET GT SCH ×3 (08:41→17:16)
[2020-10-02] MEDS: HEPARIN SODIUM, PORCINE 5000 UNITS/1 ML VIAL SQ SCH ×2 (08:41→21:40)
[2020-10-02] MEDS: HYDROGEL DRESSING 90 GM TUBE TP SCH (08:42)
[2020-10-02] MEDS: DAKINS QUARTER STRENGTH (0.125%) 480 ML BOTTLE TOP SCH (08:42)
[2020-10-02] MEDS: CLOTRIMAZOLE 1% 15 GM TUBE TP SCH ×2 (08:42→17:17)
--- NOTE | 2020-10-02 19:11 | NUR ---
RN CLOSING NOTE PT IS NONVERBAL AND RESTING IN BED. PT IS ABLE TO BE AROUSED BY LIGHT PAIN, CURRENTLY ON TRACH WITH NO RESPIRATORY DISTRESS PRESENT. O2 SAT IN HIGH 90'S TO 100%. CURRENTLY SINUS RHYTHM/TACHYCARDIA RECORDED BY EXTERNAL MONITOR. PT IS BEDBOUND. F/C PRESENT AND DRAINING WITH CLEAR YELLOW LIQUID. SKIN WOUNDS PRESENT ON L HEEL, SACRUM, L ARM, R CLAVICLE, R HIP, AND L SHOULDER. SAFETY MEASURES IN PLACE. BED LOWERED. CALL LIGHT WITHIN REACH. SIDE RAILS RAISED. ROUTINE MEDS GIVEN. REPORT GIVEN TO NIGHT NURSE.
[2020-10-02 20:00] VITALS: BP 142/58
--- NOTE | 2020-10-02 20:06 | NUR ---
ict programmer initial notes received report from am nurse Desmond and seen pt in bed on mechanical ventilator set up by RT as ordered. no signs of any acute distress noted. He also on G-tube feeding at 65 ml /hr no aspiration noted. Huff to gravity with clear yellow output noted at this time. Sinus Rhythm heart 65 on tele monitor. kept him on semi fowlers position with side rails x2 up and pt on KCI mattress for pt comfort. kept him warm and comfortable at all times. will continue monitoring.
[2020-10-03] VITALS: BP 128/53
--- NOTE | 2020-10-03 | NUR ---
tele emblem fuser tender notes blood sugar 178, 3 units of insulin given juan a SQ as ordered. Pt still on G-tube feeding. no aspiration noted.
[2020-10-03] MEDS: GLUCERNA 1.2 1,000 ML BOTTLE GT PRN (02:03)
[2020-10-03 04:00] VITALS: BP 148/64
[2020-10-03] MEDS: BLOOD SUGAR DIAGNOSTIC 1 EACH STRIP IN SCH ×4 (06:51→18:09)
[2020-10-03] MEDS: INSULIN REGULAR, HUMAN 100 UNIT/ML 3 ML VIAL SQ PRN ×2 (06:52→12:11)
--- NOTE | 2020-10-03 07:27 | NUR ---
RN NOTES Patient is in bed sleeping. Non-verbal. Currently w/ trach and on mechanical ventilator, settings tolerated at this time, no sob nor respiratory distress. EDMUNDO midline intact and patent. G-tube feeding at 65 ml/hr, no aspiration noted, hob elevated. Huff cath intact and draining clear yellow urine. On tele monitoring, reading of SR/SB, hr in the low 60's. Safety precs in place. Will continue to monitor.
--- NOTE | 2020-10-03 07:48 | NUR ---
research biologist closing notes pt resting comfortably in bed , stable throughout the night and SR on tele monitor. Blood sugar checked 171, 3units of insulin given as ordered. G-tube feeding tolerated well. kept him warm and comfortable at all times. endorse to am nurse for continuity of care.
[2020-10-03 08:00] VITALS: BP 118/62
[2020-10-03 08:03] LABS: BASOPHILS % (AUTO) 0.3 % (0.0-2.0); EOSINOPHILS % (AUTO) 7.1 % (0.0-6.0); HEMATOCRIT 28 % (39-51); HEMOGLOBIN 8.9 g/dL (13.5-17.5); LYMPHOCYTES # (AUTO) 1.2 /CMM (0.8-4.8); LYMPHOCYTES % (AUTO) 10.4 % (20.0-44.0); MEAN CORPUSCULAR HGB CONC 32 g/dl (31.0-36.0); MEAN CORPUSCULAR VOLUME 97 fL (80-96); MONOCYTES % (AUTO) 8.7 % (2.0-12.0); NEUTROPHILS # (AUTO) 8.1 /CMM (1.8-8.9); NEUTROPHILS % (AUTO) 73.5 % (43.0-81.0); PLATELET COUNT (AUTO) 321 /CMM (150-450); RED BLOOD CELL COUNT(AUTO) 2.92 MIL/uL (4.5-6.0)
[2020-10-03 08:27] LABS: CALCIUM, SERUM 9.4 mg/dL (8.5-10.1); CARBON DIOXIDE 26 mmol/L (21-32); CHLORIDE 116 mmol/L (98-107); CREATININE 1.7 mg/dL (0.6-1.3); GLUCOSE 191 mg/dL (74-106); SODIUM SERUM 147 mmol/L (136-145); UREA NITROGEN, BLOOD 51 mg/dL (7-18)
[2020-10-03 08:49] LABS: POTASSIUM 6.3 mmol/L (3.5-5.1)
[2020-10-03] MEDS: HEPARIN SODIUM, PORCINE 5000 UNITS/1 ML VIAL SQ SCH ×2 (09:01→20:55)
[2020-10-03] MEDS: ASPIRIN 81 MG TAB.CHEW GT SCH (09:02)
[2020-10-03] MEDS: hydrALAZINE HCL 50 MG TABLET GT SCH ×3 (09:02→16:53)
[2020-10-03] MEDS: FAMOTIDINE (20 MG) 20 MG TABLET GT SCH (09:02)
[2020-10-03] MEDS: TAMSULOSIN 0.4 MG CAP.SR.24H GT SCH (09:02)
[2020-10-03] MEDS: FINASTERIDE (5 MG) 5 MG TABLET GT SCH (09:03)
[2020-10-03] MEDS: CLONIDINE HCL 0.1 MG TABLET GT SCH ×2 (09:03→20:54)
[2020-10-03] MEDS: CHOLECALCIFEROL 1,000 UNIT TABLET (VIT D3) GT SCH (09:03)
[2020-10-03] MEDS: LINAGLIPTIN 5 MG TABLET GT SCH (09:03)
[2020-10-03] MEDS: AMLODIPINE BESYLATE 5 MG TABLET PO SCH ×2 (09:04→16:53)
[2020-10-03] MEDS: AMIODARONE HCL 200 MG TABLET GT SCH (09:04)
[2020-10-03] MEDS: DAKINS QUARTER STRENGTH (0.125%) 480 ML BOTTLE TOP SCH (09:06)
[2020-10-03] MEDS: CLOTRIMAZOLE 1% 15 GM TUBE TP SCH ×2 (09:07→16:53)
[2020-10-03] MEDS: HYDROGEL DRESSING 90 GM TUBE TP SCH (09:07)
--- NOTE | 2020-10-03 10:25 | NUR ---
RN NOTES DR. HALE IN THE UNIT AND MADE AWARE OF PATIENT'S POTASSIUM LEVEL OF 6.3
--- NOTE | 2020-10-03 10:50 | NUR ---
RN NOTES PATIENT SEEN BY LB ECKERT NP, W/ ORDER TO STOP FEEDING FOR NOW AND DO EKG STAT.
[2020-10-03] MEDS ORDERED: DEXTROSE 50%-WATER 50 ML DISP.SYRIN IVP ONE (11:00)
[2020-10-03] MEDS ORDERED: SODIUM BICARBONATE SYR 50 MEQ/50 ML DISP.SYRIN IV ONE (11:00)
[2020-10-03] MEDS ORDERED: INSULIN REGULAR, HUMAN 100 UNIT/ML 10 ML VIAL IV ONE (11:00)
[2020-10-03] MEDS ORDERED: FUROSEMIDE 40 MG/4 ML VIAL IV ONE (11:00)
[2020-10-03] MEDS ORDERED: SODIUM POLYSTYRENE SULFONATE 15 G/60 ML BOTTLE PO ONE ×2 (11:00→17:30)
[2020-10-03] MEDS ORDERED: SILVER NITRATE APPLICATOR 1 EA BOX TP ONE (12:30)
[2020-10-03] MEDS ORDERED: LIDOCAINE 1%-EPI 1:100,000 20 ML VIAL TP ONE (12:30)
--- NOTE | 2020-10-03 13:20 | NUR ---
RN NOTES PATIENT FOR EXCISIONAL DEBRIDEMENT OF SACRAL WOUND, ORDER NOTED FROM [facility] MILL [facility]. TELEPHONE CONSENT OBTAINED FROM SON VIANNEY ([phone]) WITNESSED BY ME AND ANOTHER NURSE FIRE CODE INSPECTOR DANA.
[2020-10-03 15:28] LABS: CALCIUM, SERUM 9.3 mg/dL (8.5-10.1); CARBON DIOXIDE 28 mmol/L (21-32); CHLORIDE 115 mmol/L (98-107); CREATININE 1.7 mg/dL (0.6-1.3); GLUCOSE 180 mg/dL (74-106); POTASSIUM 5.5 mmol/L (3.5-5.1); SODIUM SERUM 149 mmol/L (136-145); UREA NITROGEN, BLOOD 50 mg/dL (7-18)
[2020-10-03] MEDS ORDERED: FUROSEMIDE 20 MG/2 ML VIAL IV ONE (17:30)
[2020-10-03] MEDS: NEPRO 1,000 ML BOTTLE GT PRN (18:23)
--- NOTE | 2020-10-03 18:54 | NUR ---
RN NOTES Patient is in bed resting, occasionally opens eyes to tactile sensation, non-verbal. With trach and on mechanical ventilator, w/ settings tolerated at this time, no sob nor respiratory distress. EDMUNDO midline intact and patent. G-tube feeding at 65 ml/hr, no aspiration noted, hob elevated; changed feeding today to Nepro as per MD order. Due meds given. Huff cath intact and draining clear yellow urine. On tele monitoring, reading of SR, hr in the mid 60's. Safety precs maintained. Will endorse to material handler 2nd shift RN for donte.
[2020-10-03 20:00] VITALS: BP 142/60
--- NOTE | 2020-10-03 20:00 | NUR ---
TELE STOCK LETTERER INITIAL NOTES PATIENT A/OX1; OPENS EYES TO NAME. PATIENT ON VENT, TOLERATING VENT SETTINGS WELL. ON EXTERNAL CARDIAC TELE MONITORING; READS SR AND HR AT 70'S. PATIENT IN BED RESTING COMFORTABLY. PATIENT IN NO ACUTE DISTRESS. NO SOB NOTED. PATIENT BREATHING IS EVEN AND UNLABORED. METZGER CATHETER PATENT AND INTACT; DRAINING CLEAR YELLOW URINE. G-TUBE FEEDING PATENT AND INTACT NEPHRO @ 65ML/HR. TELE SINUS RHYTHM , PATIENT SAFETY PRECAUTIONS IN PLACE; PATIENT BED IS LOCKED AND IN LOWEST POSITION. CALL LIGHT WITHIN REACH. SIDE RAILS UPX3. WILL CONTINUE PLAN OF CARE.
[2020-10-04] VITALS: BP 131/60
[2020-10-04] MEDS: INSULIN REGULAR, HUMAN 100 UNIT/ML 3 ML VIAL SQ PRN ×3 (00:51→12:14)
[2020-10-04] MEDS: BLOOD SUGAR DIAGNOSTIC 1 EACH STRIP IN SCH ×4 (00:53→17:49)
[2020-10-04 04:00] VITALS: BP 131/51
[2020-10-04] MEDS: Z GUARD REMEDY 2 OZ OINT TP PRN (06:45)
--- NOTE | 2020-10-04 07:29 | NUR ---
RN NOTES Patient is in bed resting. Non-verbal, opens eyes occasionally. On trach and on ventilator, settings tolerated at this time, no sob nor respiratory distress, RT at bedside checking patient. EDMUNDO midline intact and patent. G-tube feeding at 65 ml/hr, no aspiration noted, hob elevated. Huff cath intact and draining clear yellow urine. On tele monitoring, reading of SR, hr in the 70's. Safety precs in place. Will continue to monitor.
--- NOTE | 2020-10-04 07:43 | NUR ---
tele continuous improvement coordinator closing notes pt stablle throughout the night and blood sugar checked done 159, 2 units of insulin given . no signs of hyper glycemia noted. tele SR per monitor. sponge bath and wound care treatment done . reposition him for comfort. endorse to am nurse for continuity of care.
[2020-10-04 07:50] LABS: BASOPHILS % (AUTO) 0.4 % (0.0-2.0); EOSINOPHILS % (AUTO) 7.9 % (0.0-6.0); HEMATOCRIT 28 % (39-51); LYMPHOCYTES # (AUTO) 1.1 /CMM (0.8-4.8); LYMPHOCYTES % (AUTO) 10.1 % (20.0-44.0); MEAN CORPUSCULAR HGB CONC 32 g/dl (31.0-36.0); MEAN CORPUSCULAR VOLUME 96 fL (80-96); MONOCYTES % (AUTO) 9.5 % (2.0-12.0); NEUTROPHILS # (AUTO) 7.8 /CMM (1.8-8.9); NEUTROPHILS % (AUTO) 72.1 % (43.0-81.0); PLATELET COUNT (AUTO) 311 /CMM (150-450); RED BLOOD CELL COUNT(AUTO) 2.91 MIL/uL (4.5-6.0); WHITE BLOOD COUNT (AUTO) 10.8 K/uL (4.3-11.0)
[2020-10-04 08:20] LABS: CALCIUM, SERUM 9.2 mg/dL (8.5-10.1); CARBON DIOXIDE 28 mmol/L (21-32); CHLORIDE 115 mmol/L (98-107); CREATININE 1.7 mg/dL (0.6-1.3); GLUCOSE 210 mg/dL (74-106); POTASSIUM 4.4 mmol/L (3.5-5.1); SODIUM SERUM 151 mmol/L (136-145); UREA NITROGEN, BLOOD 50 mg/dL (7-18)
[2020-10-04 08:44] VITALS: BP 144/66
[2020-10-04] MEDS: hydrALAZINE HCL 50 MG TABLET GT SCH ×3 (08:59→17:44)
[2020-10-04] MEDS: CLONIDINE HCL 0.1 MG TABLET GT SCH ×2 (09:00→21:09)
[2020-10-04] MEDS: FAMOTIDINE (20 MG) 20 MG TABLET GT SCH (09:00)
[2020-10-04] MEDS: TAMSULOSIN 0.4 MG CAP.SR.24H GT SCH (09:00)
[2020-10-04] MEDS: CHOLECALCIFEROL 1,000 UNIT TABLET (VIT D3) GT SCH (09:00)
[2020-10-04] MEDS: AMIODARONE HCL 200 MG TABLET GT SCH (09:01)
[2020-10-04] MEDS: LINAGLIPTIN 5 MG TABLET GT SCH (09:01)
[2020-10-04] MEDS: FINASTERIDE (5 MG) 5 MG TABLET GT SCH (09:01)
[2020-10-04] MEDS: ASPIRIN 81 MG TAB.CHEW GT SCH (09:01)
[2020-10-04] MEDS: HYDROGEL DRESSING 90 GM TUBE TP SCH (09:02)
[2020-10-04] MEDS: CLOTRIMAZOLE 1% 15 GM TUBE TP SCH ×2 (09:02→17:08)
[2020-10-04] MEDS: AMLODIPINE BESYLATE 5 MG TABLET PO SCH ×2 (09:02→17:44)
[2020-10-04] MEDS: DAKINS QUARTER STRENGTH (0.125%) 480 ML BOTTLE TOP SCH (09:03)
[2020-10-04] MEDS: HEPARIN SODIUM, PORCINE 5000 UNITS/1 ML VIAL SQ SCH ×2 (09:04→21:11)
[2020-10-04] MEDS: NEPRO 1,000 ML BOTTLE GT PRN (14:41)
[2020-10-04 16:30] VITALS: BP 135/63
--- NOTE | 2020-10-04 19:15 | NUR ---
RN NOTES Patient is in bed resting, non-verbal. With trach and on mechanical ventilator, w/ settings tolerated at this time, no sob nor respiratory distress. EDMUNDO midline intact and patent. G-tube feeding at 65 ml/hr, no aspiration noted, hob elevated; feeding of Nepro at 65cc/hr, no residual noted. Due meds given. Huff cath intact and draining clear yellow urine. On tele monitoring, reading of SR, hr in the mid 80's. S/p sacral debridement of eschar today w/ Dr. Xie and AMOS Ray. Sacral wound packed and secured. No bleeding noted. Safety precs maintained. Will endorse to assistant casino shift manager RN for donte.
--- NOTE | 2020-10-04 19:20 | NUR ---
RN NOTES: RECEIVED LYING ON BED IN SEMI FOWLERS POSITION,NON VERBLA, CLOSING HIS EYES MOST OF THE TIME, ON VENTILATOR LUCI#8, SETTING: PEEP-0 AC-24 TV-450 Fi02-30%, ON TELE-MONITOR SR-84, ON METZGER CATH DRAINING INTO DARK YELLOWISH COLORED URINE, G-TUBE IN SITE , FEEDING OF NEPHRO AT 65 ML/HR VIA FEEDING PUMP, EDMUNDO MID LINE INTACT AND PATENT,PER ENDORSEMENT HE HAD WOUND DEBRIDEMENT DONE THIS MORNING BY , NO MORE BLEEDING NOTED AND DRESSING WAS JUST NEWLY CHANGE.WILL CONTINUE TO MONITOR FOR ANY CHANGES AND MONITOR FOR BLEEDING. -FALL,SAFETY AND ASPIRATION PRECAUTION OBSERVED.ORIENTED TO UNIT AND STAFF.
[2020-10-04 20:00] VITALS: BP 142/69
[2020-10-05] VITALS: BP 108/62
[2020-10-05] MEDS: BLOOD SUGAR DIAGNOSTIC 1 EACH STRIP IN SCH ×4 (00:40→17:15)
[2020-10-05] MEDS: INSULIN REGULAR, HUMAN 100 UNIT/ML 3 ML VIAL SQ PRN ×4 (00:42→17:17)
--- NOTE | 2020-10-05 00:45 | NUR ---
RN NOTES: BLOOD SUGAR CHECKED-254, INSULIN GIVEN PER SCALE, WILL CONTINUE TO MONITOR FOR SIGN OF HYPER/HYPOGLYCEMIA, NEEDS ATTENDED,TURNING AND REPOSITIONING DONE, FEEDING CONTINUE.
[2020-10-05 04:00] VITALS: BP_SYST 108; BP_SYST 121; BP_DIAS 58; BP_DIAS 62
--- NOTE | 2020-10-05 05:52 | NUR ---
RN NOTES: BLOOD SUGAR CHECK-211, GIVEN INSULIN PER SCALE, CONTINUE TO MONITOR.
[2020-10-05 07:44] LABS: BASOPHILS % (AUTO) 0.3 % (0.0-2.0); EOSINOPHILS % (AUTO) 7.4 % (0.0-6.0); HEMATOCRIT 31 % (39-51); HEMOGLOBIN 10.1 g/dL (13.5-17.5); LYMPHOCYTES # (AUTO) 1.3 /CMM (0.8-4.8); LYMPHOCYTES % (AUTO) 14.5 % (20.0-44.0); MEAN CORPUSCULAR HGB CONC 33 g/dl (31.0-36.0); MEAN CORPUSCULAR VOLUME 97 fL (80-96); MONOCYTES # (AUTO) 0.9 /CMM (0.1-1.30); MONOCYTES % (AUTO) 10.2 % (2.0-12.0); NEUTROPHILS # (AUTO) 6.2 /CMM (1.8-8.9); NEUTROPHILS % (AUTO) 67.6 % (43.0-81.0); PLATELET COUNT (AUTO) 299 /CMM (150-450); RED BLOOD CELL COUNT(AUTO) 3.21 MIL/uL (4.5-6.0); WHITE BLOOD COUNT (AUTO) 9.2 K/uL (4.3-11.0)
[2020-10-05 07:55] LABS: CALCIUM, SERUM 10.3 mg/dL (8.5-10.1); CARBON DIOXIDE 29 mmol/L (21-32); CHLORIDE 116 mmol/L (98-107); CREATININE 1.7 mg/dL (0.6-1.3); GLUCOSE 226 mg/dL (74-106); POTASSIUM 4.5 mmol/L (3.5-5.1); SODIUM SERUM 152 mmol/L (136-145); UREA NITROGEN, BLOOD 47 mg/dL (7-18)
[2020-10-05 08:00] VITALS: BP 100/66
--- NOTE | 2020-10-05 08:00 | NUR ---
RN Opening note Received patient in bed, awake oriented to person, able to responds all stimuli, Pt does appears pain or distress. Skin is warm to touch keep clean/dry intact IV site, patient is on ventilator, respiratory even and unlabored on O2sat 100%. Kept locked bed with elevated HOB for aspiration precaution also ensure airway and lowest bed for safety. Call light within reach, will continue to monitor.
--- NOTE | 2020-10-05 08:12 | NUR ---
RN NOTES: REMAIN SR RATE-83, NO PAIN OR DISCOMFORT, CONTINUE FEEDING, ON VENTILATOR NO SIGN OF RESPIRATORY DISTRESS, TRUNING AND REPOSITIONING DONE,CLEAN AND CHANGE, FOR BLOOD TEST THIS MORNING, ENDORSED FOR CONTINUITY OF CARE.
[2020-10-05] MEDS: CLONIDINE HCL 0.1 MG TABLET GT SCH ×2 (09:00→21:00)
[2020-10-05] MEDS: AMIODARONE HCL 200 MG TABLET GT SCH (09:00)
[2020-10-05] MEDS: hydrALAZINE HCL 50 MG TABLET GT SCH ×3 (09:00→17:20)
[2020-10-05] MEDS: AMLODIPINE BESYLATE 5 MG TABLET PO SCH ×2 (09:00→17:20)
[2020-10-05] MEDS: LINAGLIPTIN 5 MG TABLET GT SCH (10:05)
[2020-10-05] MEDS: CHOLECALCIFEROL 1,000 UNIT TABLET (VIT D3) GT SCH (10:06)
[2020-10-05] MEDS: FINASTERIDE (5 MG) 5 MG TABLET GT SCH (10:06)
[2020-10-05] MEDS: TAMSULOSIN 0.4 MG CAP.SR.24H GT SCH (10:06)
[2020-10-05] MEDS: FAMOTIDINE (20 MG) 20 MG TABLET GT SCH (10:06)
[2020-10-05] MEDS: ASPIRIN 81 MG TAB.CHEW GT SCH (10:06)
[2020-10-05] MEDS: DAKINS QUARTER STRENGTH (0.125%) 480 ML BOTTLE TOP SCH (10:13)
[2020-10-05] MEDS: HYDROGEL DRESSING 90 GM TUBE TP SCH (10:14)
[2020-10-05] MEDS: CLOTRIMAZOLE 1% 15 GM TUBE TP SCH ×2 (10:14→17:18)
[2020-10-05 12:00] VITALS: BP 114/50
[2020-10-05] MEDS: NEPRO 1,000 ML BOTTLE GT PRN (12:56)
[2020-10-05] MEDS: IV D5W 1,000 ML IV PRN (14:28)
[2020-10-05 16:00] VITALS: BP 137/58
--- NOTE | 2020-10-05 18:47 | NUR ---
RN closing Patient is in bed resting, does no appears distress or discomfort. Skin is warm to touch, keep clean/dry, changed wound dressing on sacral. Respiratory even and unlabored, O2sat 100% with ventilator. Kept elevated HOB for ensure air way and aspiration precaution and lowest bed for safety. Call light within reach, will endorse junior sales assistant
[2020-10-05 20:00] VITALS: BP 110/67
--- NOTE | 2020-10-05 20:02 | NUR ---
RN NOTES Patient is in bed resting, does no appears distress or discomfort. Skin is warm to touch. Respiratory even and unlabored, O2sat 100% with ventilator. running d5w @50 ml via right arm midline. tolerating well.Kept elevated HOB for ensure air way and aspiration precaution and lowest bed for safety. Call light within reach, will continue to monitor.
--- NOTE | 2020-10-05 21:48 | NUR ---
RN NOTES DID NOT ADMINISTER BP MED DUE TO LOW SBP WILL CONTINUE TO MONITOR.
[2020-10-06] VITALS: BP 121/52
[2020-10-06] MEDS: BLOOD SUGAR DIAGNOSTIC 1 EACH STRIP IN SCH ×5 (00:06→23:55)
[2020-10-06] MEDS: INSULIN REGULAR, HUMAN 100 UNIT/ML 3 ML VIAL SQ PRN ×5 (00:08→23:58)
[2020-10-06 04:00] VITALS: BP 114/69
--- NOTE | 2020-10-06 04:30 | NUR ---
RN NOTES WOUND DRESSING CHANGED TOLERATED WELL WILL CONTINUE TO MONITOR.
--- NOTE | 2020-10-06 06:38 | NUR ---
RN NOTES BLOOD SUGAR CHECKED INSULIN COVERAGE PROVIDED. WILL CONTINUE TO MONITOR.
[2020-10-06 07:00] LABS: BASOPHILS % (AUTO) 0.3 % (0.0-2.0); EOSINOPHILS % (AUTO) 6.9 % (0.0-6.0); HEMATOCRIT 32 % (39-51); HEMOGLOBIN 10.2 g/dL (13.5-17.5); LYMPHOCYTES # (AUTO) 1.1 /CMM (0.8-4.8); LYMPHOCYTES % (AUTO) 10.9 % (20.0-44.0); MEAN CORPUSCULAR HGB CONC 32 g/dl (31.0-36.0); MEAN CORPUSCULAR VOLUME 98 fL (80-96); MONOCYTES # (AUTO) 0.7 /CMM (0.1-1.30); MONOCYTES % (AUTO) 6.8 % (2.0-12.0); NEUTROPHILS # (AUTO) 7.8 /CMM (1.8-8.9); NEUTROPHILS % (AUTO) 75.1 % (43.0-81.0); PLATELET COUNT (AUTO) 322 /CMM (150-450); RED BLOOD CELL COUNT(AUTO) 3.25 MIL/uL (4.5-6.0); WHITE BLOOD COUNT (AUTO) 10.3 K/uL (4.3-11.0)
--- NOTE | 2020-10-06 07:16 | NUR ---
RN NOTES Patient is in bed resting, does no appears distress or discomfort. Skin is warm to touch. Respiratory even and unlabored, O2sat 100% with ventilator. running d5w @50 ml via right arm midline. tolerating well.Kept elevated HOB for ensure air way and aspiration precaution and lowest bed for safety. Call light within reach, will ENDORSE CARE TO DAY SHIFT
[2020-10-06 07:33] LABS: CALCIUM, SERUM 11.2 mg/dL (8.5-10.1); CARBON DIOXIDE 30 mmol/L (21-32); CHLORIDE 113 mmol/L (98-107); CREATININE 1.6 mg/dL (0.6-1.3); GLUCOSE 166 mg/dL (74-106); POTASSIUM 4.9 mmol/L (3.5-5.1); SODIUM SERUM 149 mmol/L (136-145); UREA NITROGEN, BLOOD 46 mg/dL (7-18)
[2020-10-06 08:00] VITALS: BP 107/54
--- NOTE | 2020-10-06 08:00 | NUR ---
RN OPENING NOTE T IS NONVERBAL AND RESTING IN BED. PT IS ABLE TO BE AROUSED BY LIGHT PAIN, CURRENTLY ON TRACH WITH NO RESPIRATORY DISTRESS PRESENT. O2 SAT IN HIGH 90'S TO 100%. CURRENTLY SINUS RHYTHM/TACHYCARDIA RECORDED BY EXTERNAL MONITOR. PT IS BEDBOUND. F/C PRESENT AND DRAINING WITH CLEAR YELLOW LIQUID. SKIN WOUNDS PRESENT ON L HEEL, SACRUM, L ARM, R CLAVICLE, R HIP, AND L SHOULDER. SAFETY MEASURES IN PLACE. BED LOWERED. CALL LIGHT WITHIN REACH. SIDE RAILS RAISED. WILL CONTINUE TO MONITOR.
[2020-10-06] MEDS: AMIODARONE HCL 200 MG TABLET GT SCH (09:00)
[2020-10-06] MEDS: CLONIDINE HCL 0.1 MG TABLET GT SCH ×2 (09:00→21:00)
[2020-10-06] MEDS: hydrALAZINE HCL 50 MG TABLET GT SCH ×3 (09:00→18:32)
[2020-10-06] MEDS: AMLODIPINE BESYLATE 5 MG TABLET PO SCH ×2 (09:00→18:31)
[2020-10-06] MEDS: CHOLECALCIFEROL 1,000 UNIT TABLET (VIT D3) GT SCH (09:34)
[2020-10-06] MEDS: ASPIRIN 81 MG TAB.CHEW GT SCH (09:35)
[2020-10-06] MEDS: FAMOTIDINE (20 MG) 20 MG TABLET GT SCH (09:35)
[2020-10-06] MEDS: FINASTERIDE (5 MG) 5 MG TABLET GT SCH (09:35)
[2020-10-06] MEDS: LINAGLIPTIN 5 MG TABLET GT SCH (09:35)
[2020-10-06] MEDS: TAMSULOSIN 0.4 MG CAP.SR.24H GT SCH (09:35)
[2020-10-06] MEDS: DAKINS QUARTER STRENGTH (0.125%) 480 ML BOTTLE TOP SCH (09:38)
[2020-10-06] MEDS: CLOTRIMAZOLE 1% 15 GM TUBE TP SCH ×2 (09:38→17:00)
[2020-10-06] MEDS: HYDROGEL DRESSING 90 GM TUBE TP SCH (09:38)
[2020-10-06] MEDS: NEPRO 1,000 ML BOTTLE GT PRN (10:10)
[2020-10-06 12:00] VITALS: BP 140/70
[2020-10-06 16:00] VITALS: BP 118/68
[2020-10-06] MEDS: IV D5W 1,000 ML IV PRN (19:32)
--- NOTE | 2020-10-06 20:24 | NUR ---
RN NOTES Patient is in bed resting, does no appears to be in any distress or discomfort. Skin is warm to touch. Respiratory even and unlabored, O2sat 100% with ventilator. running d5w @50 ml via right arm midline. tolerating well.Kept elevated HOB elevated to ensure airway and aspiration precaution and lowest bed for safety. Call light within reach, will continue to monitor.
[2020-10-06 21:41] VITALS: BP 107/65
--- NOTE | 2020-10-06 22:08 | NUR ---
RN NOTES DID NOT ADMINISTER BP MEDS FOR LOW BP SBP 107/65. WILL CONTINUE TO MONITOR.
--- NOTE | 2020-10-07 00:10 | NUR ---
RN NOTES BLOOD SUGAR CHECKED INSULIN COVERAGE PROVIDED. WILL CONTINUE TO MONITOR.
[2020-10-07 00:50] VITALS: BP 99/52
[2020-10-07 04:54] VITALS: BP 104/57
[2020-10-07] MEDS: BLOOD SUGAR DIAGNOSTIC 1 EACH STRIP IN SCH ×4 (06:29→23:46)
[2020-10-07] MEDS: INSULIN REGULAR, HUMAN 100 UNIT/ML 3 ML VIAL SQ PRN ×4 (06:30→23:51)
[2020-10-07 07:26] LABS: BASOPHILS % (AUTO) 0.4 % (0.0-2.0); EOSINOPHILS % (AUTO) 6.9 % (0.0-6.0); HEMATOCRIT 30 % (39-51); HEMOGLOBIN 9.6 g/dL (13.5-17.5); LYMPHOCYTES # (AUTO) 1.1 /CMM (0.8-4.8); LYMPHOCYTES % (AUTO) 11.5 % (20.0-44.0); MEAN CORPUSCULAR HGB CONC 33 g/dl (31.0-36.0); MEAN CORPUSCULAR VOLUME 97 fL (80-96); MONOCYTES # (AUTO) 0.8 /CMM (0.1-1.30); MONOCYTES % (AUTO) 8.1 % (2.0-12.0); NEUTROPHILS # (AUTO) 7.3 /CMM (1.8-8.9); NEUTROPHILS % (AUTO) 73.1 % (43.0-81.0); PLATELET COUNT (AUTO) 303 /CMM (150-450); RED BLOOD CELL COUNT(AUTO) 3.04 MIL/uL (4.5-6.0)
--- NOTE | 2020-10-07 07:32 | NUR ---
RN NOTES BLOOD SUGAR CHECKED INSULIN COVERAGE PROVIDED. PT IN BED NO SIGNS OF DISCOMFORT OR PAIN VISIBLE. NO RESPIRATORY DISTRESS NOTED. SAFETY PRECAUTIONS FOLLOWED.WILL ENDORSE CARE TO DAY SHIFT.
--- NOTE | 2020-10-07 07:50 | NUR ---
MS/RN OPENING NOTE RECEIVED PATIENT FROM CLERK TYPIST NURSE. PATIENT IS IN BED ASLEEP INTERMITTENTLY, A/O XO NON VERBAL. NO ACUTE DISTRESS NOTED AT THIS TIME. ON OXYGEN [facility] #6 TV 450, AC 24, FIO2 30%. SAFETY MEASURES IN PLACE, BED LOCKED AND IN LOWEST POSITION, CALL LIGHT WITHIN REACH. WILL CONTINUE TO MONITOR AND ENSURE SAFETY.
[2020-10-07 08:00] VITALS: BP 109/59
[2020-10-07 08:20] LABS: CALCIUM, SERUM 10.8 mg/dL (8.5-10.1); CARBON DIOXIDE 29 mmol/L (21-32); CHLORIDE 112 mmol/L (98-107); CREATININE 1.8 mg/dL (0.6-1.3); GLUCOSE 287 mg/dL (74-106); SODIUM SERUM 149 mmol/L (136-145); UREA NITROGEN, BLOOD 50 mg/dL (7-18)
[2020-10-07] MEDS: ASPIRIN 81 MG TAB.CHEW GT SCH (09:00)
[2020-10-07] MEDS: hydrALAZINE HCL 50 MG TABLET GT SCH ×3 (09:00→16:13)
[2020-10-07] MEDS: CHOLECALCIFEROL 1,000 UNIT TABLET (VIT D3) GT SCH (09:00)
[2020-10-07] MEDS: FAMOTIDINE (20 MG) 20 MG TABLET GT SCH (09:00)
[2020-10-07] MEDS: LINAGLIPTIN 5 MG TABLET GT SCH (09:00)
[2020-10-07] MEDS: TAMSULOSIN 0.4 MG CAP.SR.24H GT SCH (09:00)
[2020-10-07] MEDS: CLONIDINE HCL 0.1 MG TABLET GT SCH ×2 (09:00→21:37)
[2020-10-07] MEDS: FINASTERIDE (5 MG) 5 MG TABLET GT SCH (09:00)
[2020-10-07] MEDS: AMLODIPINE BESYLATE 5 MG TABLET PO SCH ×2 (09:02→16:10)
[2020-10-07] MEDS: DAKINS QUARTER STRENGTH (0.125%) 480 ML BOTTLE TOP SCH (09:03)
[2020-10-07] MEDS: CLOTRIMAZOLE 1% 15 GM TUBE TP SCH ×2 (09:04→16:14)
[2020-10-07] MEDS: HYDROGEL DRESSING 90 GM TUBE TP SCH (09:04)
[2020-10-07] MEDS: AMIODARONE HCL 200 MG TABLET GT SCH (09:05)
[2020-10-07] MEDS: NEPRO 1,000 ML BOTTLE GT PRN (09:06)
[2020-10-07 16:00] VITALS: BP 112/50
[2020-10-07] MEDS: IV D5W 1,000 ML IV PRN (18:23)
--- NOTE | 2020-10-07 19:17 | NUR ---
MS/RN CLOSING NOTE PATIENT IS IN BED ASLEEP INTERMITTENTLY, A/O XO NON VERBAL. NO ACUTE DISTRESS NOTED AT THIS TIME. ON OXYGEN [facility] #8 TV 450, AC 24, FIO2 30%. SAFETY MEASURES IN PLACE, BED LOCKED AND IN LOWEST POSITION, CALL LIGHT WITHIN REACH. ALL NEEDS MET THROUGHOUT THE SHIFT. WILL ENDORSE TO ACCOUNTING MANAGER NURSE.
--- NOTE | 2020-10-07 19:57 | NUR ---
RN NOTES PATIENT IS IN BED ASLEEP INTERMITTENTLY, A/O XO NON VERBAL. NO ACUTE DISTRESS NOTED AT THIS TIME. ON [facility]XYGEN [facility] TV 450, AC 24, FIO2 30%. SAFETY MEASURES IN PLACE, BED LOCKED AND IN LOWEST POSITION, CALL LIGHT WITHIN REACH. ALL NEEDS MET THROUGHOUT THE SHIFT. WILL CONTINUE TO MONITOR.
[2020-10-07 20:00] VITALS: BP 113/63
[2020-10-07 22:00] VITALS: BP 113/63
[2020-10-08 04:00] VITALS: BP_SYST 105; BP_SYST 118; BP_DIAS 76; BP_DIAS 86
[2020-10-08] MEDS: NEPRO 1,000 ML BOTTLE GT PRN ×2 (06:09→23:41)
[2020-10-08] MEDS: BLOOD SUGAR DIAGNOSTIC 1 EACH STRIP IN SCH ×4 (06:49→23:24)
[2020-10-08] MEDS: INSULIN REGULAR, HUMAN 100 UNIT/ML 3 ML VIAL SQ PRN ×4 (06:51→23:46)
--- NOTE | 2020-10-08 07:33 | NUR ---
RN NOTES PATIENT IS IN BED ASLEEP INTERMITTENTLY, A/O XO NON VERBAL. NO ACUTE DISTRESS NOTED AT THIS TIME. [facility], AC 24, FIO2 30%. SAFETY MEASURES IN PLACE, BED LOCKED AND IN LOWEST POSITION, CALL LIGHT WITHIN REACH. ALL NEEDS MET THROUGHOUT THE SHIFT. WILL ENDORSE CARE.
[2020-10-08 08:00] VITALS: BP 107/68
--- NOTE | 2020-10-08 08:20 | NUR ---
REEL WORKER OPENING NOTE PT RECEIVED IN BED, ASLEEP BUT AROUSABLE. PT IS A/O X 0, NON-VERBAL. PT HAS NO FACIAL GRIMACING, NOT GROANING, AND HAS NO S/SX OF PAIN AT THIS TIME. PT ON [facility] VENT SHILEY #6 WITH TV 450, AC 24, FIO2 30% WITH NO S/SX OF RESPIRATORY DISTRESS, SOB, OR LABORED BREATHING NOTED. G-TUBE IS IN PLACE RUNNING NEPRO AT 65 ML/HR, IS PATENT, INTACT AND FLUSHING WELL. IV ACCESS IS ON RIGHT UPPER ARM, PATENT, INTACT AND FLUSHING WELL WITH NO S/SX REDNESS, SWELLING, IRRITATION OR INFILTRATION, RUNNING D5 AT 50 ML/HR. PT SHOWS NSR 90'S. DRESSING ON CLAVICLE IS CLEAN, DRY AND INTACT. FOR WOUND DEBRIDEMENT TODAY ON SACRUM. SAFETY MEASURES MAINTAINED: BED IN LOWEST, LOCKED POSITION WITH BOTH UPPER SIDE RAILS (X2) UP. CALL LIGHT PLACED WITHIN REACH. WILL CONTINUE TO MONITOR.
[2020-10-08] MEDS: hydrALAZINE HCL 50 MG TABLET GT SCH ×3 (09:00→16:16)
[2020-10-08] MEDS: CLONIDINE HCL 0.1 MG TABLET GT SCH ×2 (09:00→21:00)
[2020-10-08] MEDS: AMLODIPINE BESYLATE 5 MG TABLET PO SCH ×2 (09:00→16:17)
[2020-10-08] MEDS: ASPIRIN 81 MG TAB.CHEW GT SCH (09:32)
[2020-10-08] MEDS: AMIODARONE HCL 200 MG TABLET GT SCH (09:33)
[2020-10-08] MEDS: CHOLECALCIFEROL 1,000 UNIT TABLET (VIT D3) GT SCH (09:33)
[2020-10-08] MEDS: FINASTERIDE (5 MG) 5 MG TABLET GT SCH (09:33)
[2020-10-08] MEDS: FAMOTIDINE (20 MG) 20 MG TABLET GT SCH (09:33)
[2020-10-08] MEDS: TAMSULOSIN 0.4 MG CAP.SR.24H GT SCH (09:33)
[2020-10-08] MEDS: LINAGLIPTIN 5 MG TABLET GT SCH (09:33)
[2020-10-08] MEDS: DAKINS QUARTER STRENGTH (0.125%) 480 ML BOTTLE TOP SCH (09:34)
[2020-10-08] MEDS: CLOTRIMAZOLE 1% 15 GM TUBE TP SCH ×2 (09:35→16:18)
[2020-10-08] MEDS: HYDROGEL DRESSING 90 GM TUBE TP SCH (09:35)
[2020-10-08 11:26] LABS: BASOPHILS # (AUTO) 0.1 /CMM (0.0-0.2); BASOPHILS % (AUTO) 1.4 % (0.0-2.0); EOSINOPHILS % (AUTO) 8.2 % (0.0-6.0); HEMATOCRIT 28 % (39-51); HEMOGLOBIN 9.1 g/dL (13.5-17.5); LYMPHOCYTES # (AUTO) 0.9 /CMM (0.8-4.8); LYMPHOCYTES % (AUTO) 9.3 % (20.0-44.0); MEAN CORPUSCULAR HGB CONC 33 g/dl (31.0-36.0); MEAN CORPUSCULAR VOLUME 95 fL (80-96); MONOCYTES # (AUTO) 0.7 /CMM (0.1-1.30); NEUTROPHILS # (AUTO) 7.2 /CMM (1.8-8.9); NEUTROPHILS % (AUTO) 74.1 % (43.0-81.0); PLATELET COUNT (AUTO) 257 /CMM (150-450); RED BLOOD CELL COUNT(AUTO) 2.92 MIL/uL (4.5-6.0); WHITE BLOOD COUNT (AUTO) 9.8 K/uL (4.3-11.0)
[2020-10-08 11:47] LABS: ALANINE AMINOTRANSFERASE 17 U/L (12-78); ALBUMIN 1.8 g/dL (3.4-5.0); ALKALINE PHOSPHATASE 122 U/L (46-116); ASPARTATE AMINOTRANSFERASE 15 U/L (15-37); BILIRUBIN,TOTAL 0.2 mg/dL (0.2-1.0); CALCIUM, SERUM 10.8 mg/dL (8.5-10.1); CARBON DIOXIDE 30 mmol/L (21-32); CHLORIDE 110 mmol/L (98-107); CREATININE 1.8 mg/dL (0.6-1.3); GLUCOSE 246 mg/dL (74-106); MAGNESIUM 2.2 mg/dL (1.8-2.4); PHOSPHORUS 3.3 mg/dL (2.5-4.9); POTASSIUM 3.9 mmol/L (3.5-5.1); SODIUM SERUM 147 mmol/L (136-145); TOTAL PROTEIN, SERUM 6.2 g/dL (6.4-8.2); UREA NITROGEN, BLOOD 50 mg/dL (7-18)
[2020-10-08] MEDS ORDERED: SILVER NITRATE APPLICATOR 1 EA BOX TP ONE (13:30)
[2020-10-08 16:00] VITALS: BP 94/60
[2020-10-08] MEDS: VANCOMYCIN 1 GM in IV D5W 250ml IV SCH (16:14)
--- NOTE | 2020-10-08 19:03 | NUR ---
ITALIAN TUTOR CLOSING NOTE PT IS ASLEEP IN BED, RESPONSIVE AND AROUSABLE. A/O X 0 AND NON-VERBAL. PT DISPLAYS NO FACIAL GRIMACING AT THIS TIME AND HAS NO S/SX OF PAIN AT THIS TIME. PT IS ON MECHANICAL VENT SHILEY #6 WITH TV 450, AX 24, FIO2 30%, AND HAS NO SOB, LABORED BREATHING OR S/SX OF RESPIRATORY DISTRESS NOTED AT THIS TIME. G-TUBE IS IN PLACE, PATENT, INTACT AND FLUSHING WELL WITH NEPRO RUNNING AT 65 ML/HR. IV ACCESS ON RIGHT UPPER ARM IS INTACT, PATENT AND FLUSHING WELL WITH NO S/SX IRRITATION, REDNESS, SWELLING OR INFILTRATION, RUNNING D5W AT 50 ML/HR. PT IS ON MONITOR, NSR 80'S, WITH 85 CURRENTLY AT 85. PT WAS SEEN BY WOUND CONSULT TODAY, DELAYED DEBRIDEMENT ON SACRUM FOR TOMORROW. SAFETY MEASURES MAINTAINED: BED IS IN LOWEST POSITION AND LOCKED WITH BOTH UPPER SIDE RAILS X2 UP. CALL LIGHT PLACED WITHIN REACH. WILL ENDORSE TO RECEIVING OPERATOR NURSE.
--- NOTE | 2020-10-08 19:50 | NUR ---
TELE/RN OPENING NOTE RECEIVED PATIENT RESTING IN BED. NON-VERBAL AT BASELINE. CONTINUES ON MECHANICAL VENT WITH PATIENT TOLERATING SETTINGS WELL. CONTINUES ON GT WITH NEPRO FEED RUNNING AT 65ML/HR. NO RESIDUAL NOTED AT THIS TIME. NO SIGNS OR SYMPTOMS OF RESPIRATORY DISTRESS NOTED. CALL LIGHT WITHIN REACH. ASPIRATION, FALL AND SAFETY PRECAUTIONS MAINTAINED. WILL CONTINUE TO MONITOR.
[2020-10-08 20:43] VITALS: BP 98/64
--- NOTE | 2020-10-08 23:30 | NUR ---
TELE/RN NOTE PATIENTS ACCUCHECK AT 2315 WAS 211. RECEIVED SLIDING SCALE INSULIN COVERAGE PER MD ORDERS. WILL CONTINUE TO MONITOR.
[2020-10-09 00:27] VITALS: BP 104/63
[2020-10-09 05:01] VITALS: BP 101/64
[2020-10-09] MEDS: BLOOD SUGAR DIAGNOSTIC 1 EACH STRIP IN SCH ×4 (06:19→23:37)
[2020-10-09] MEDS: INSULIN REGULAR, HUMAN 100 UNIT/ML 3 ML VIAL SQ PRN ×4 (06:34→23:59)
--- NOTE | 2020-10-09 06:50 | NUR ---
TELE/RN CLOSING NOTE PATIENT RESTING IN BED. NON-VERBAL AT BASELINE. CONTINUES ON MECHANICAL VENT WITH PATIENT TOLERATING SETTINGS WELL. CONTINUES ON GT WITH NEPRO FEED RUNNING AT 65ML/HR. NO RESIDUAL NOTED AT THIS TIME. NO SIGNS OR SYMPTOMS OF RESPIRATORY DISTRESS NOTED. CALL LIGHT WITHIN REACH. ASPIRATION, FALL AND SAFETY PRECAUTIONS MAINTAINED. WILL ENDORSE PLAN OF CARE TO ONCOMING SHIFT.
[2020-10-09 07:29] LABS: BASOPHILS % (AUTO) 0.3 % (0.0-2.0); EOSINOPHILS % (AUTO) 7.8 % (0.0-6.0); HEMATOCRIT 31 % (39-51); HEMOGLOBIN 9.9 g/dL (13.5-17.5); LYMPHOCYTES # (AUTO) 1.3 /CMM (0.8-4.8); LYMPHOCYTES % (AUTO) 11.5 % (20.0-44.0); MEAN CORPUSCULAR HGB CONC 32 g/dl (31.0-36.0); MEAN CORPUSCULAR VOLUME 95 fL (80-96); MONOCYTES # (AUTO) 0.8 /CMM (0.1-1.30); MONOCYTES % (AUTO) 7.1 % (2.0-12.0); NEUTROPHILS # (AUTO) 8.3 /CMM (1.8-8.9); NEUTROPHILS % (AUTO) 73.3 % (43.0-81.0); PLATELET COUNT (AUTO) 253 /CMM (150-450); RED BLOOD CELL COUNT(AUTO) 3.27 MIL/uL (4.5-6.0); WHITE BLOOD COUNT (AUTO) 11.4 K/uL (4.3-11.0)
--- NOTE | 2020-10-09 07:30 | NUR ---
FIELD ENUMERATOR NOTES PT IN BED, RESTING, NON VERBAL, NO SIGN OF PAIN OR DISTRESS, ON VENT/TRACH, NO SOB NOTED, GT FEEDING INFUSING WELL, KEPT WARM AND COMFORTABLE IN BED, F/C DRAINING WELL.
[2020-10-09 07:41] LABS: ALANINE AMINOTRANSFERASE 21 U/L (12-78); ALKALINE PHOSPHATASE 124 U/L (46-116); ASPARTATE AMINOTRANSFERASE 17 U/L (15-37); BILIRUBIN,TOTAL 0.2 mg/dL (0.2-1.0); CALCIUM, SERUM 11.3 mg/dL (8.5-10.1); CARBON DIOXIDE 30 mmol/L (21-32); CHLORIDE 106 mmol/L (98-107); CREATININE 1.8 mg/dL (0.6-1.3); GLUCOSE 253 mg/dL (74-106); MAGNESIUM 2.2 mg/dL (1.8-2.4); PHOSPHORUS 3.6 mg/dL (2.5-4.9); SODIUM SERUM 143 mmol/L (136-145); TOTAL PROTEIN, SERUM 6.8 g/dL (6.4-8.2); UREA NITROGEN, BLOOD 50 mg/dL (7-18)
[2020-10-09 08:00] VITALS: BP 111/74
[2020-10-09] MEDS: hydrALAZINE HCL 50 MG TABLET GT SCH ×3 (09:00→17:00)
[2020-10-09] MEDS: CLONIDINE HCL 0.1 MG TABLET GT SCH ×2 (09:00→22:04)
[2020-10-09] MEDS: AMLODIPINE BESYLATE 5 MG TABLET PO SCH ×2 (09:00→17:00)
[2020-10-09] MEDS: ASPIRIN 81 MG TAB.CHEW GT SCH (09:33)
[2020-10-09] MEDS: FAMOTIDINE (20 MG) 20 MG TABLET GT SCH (09:33)
[2020-10-09] MEDS: TAMSULOSIN 0.4 MG CAP.SR.24H GT SCH (09:33)
[2020-10-09] MEDS: FINASTERIDE (5 MG) 5 MG TABLET GT SCH (09:33)
[2020-10-09] MEDS: LINAGLIPTIN 5 MG TABLET GT SCH (09:33)
[2020-10-09] MEDS: AMIODARONE HCL 200 MG TABLET GT SCH (09:33)
[2020-10-09] MEDS: CHOLECALCIFEROL 1,000 UNIT TABLET (VIT D3) GT SCH (09:33)
[2020-10-09] MEDS: HYDROGEL DRESSING 90 GM TUBE TP SCH (09:37)
[2020-10-09] MEDS: CLOTRIMAZOLE 1% 15 GM TUBE TP SCH ×2 (09:37→17:16)
[2020-10-09] MEDS: DAKINS QUARTER STRENGTH (0.125%) 480 ML BOTTLE TOP SCH (09:37)
[2020-10-09 12:00] VITALS: BP 96/62
[2020-10-09] MEDS: IV D5W 1,000 ML IV PRN (14:01)
[2020-10-09] MEDS: VANCOMYCIN 1 GM in IV D5W 250ml IV SCH (15:46)
[2020-10-09 16:00] VITALS: BP 115/72
[2020-10-09] MEDS ORDERED: GLUCERNA 1.2 1,000 ML BOTTLE GT SCH (16:00)
--- NOTE | 2020-10-09 18:23 | NUR ---
GENERAL STUDIES PROGRAM CHAIR NOTES PT IN BED, AWAKE, NON VERBAL, NO FACIAL GRIMACING, NOT IN DISTRESS, NO SIGN OF PAIN, IV FLUIDS INFUSING WELL, GT FEEDING INFUSING WELL, F/C DRAINING WELL WITH CLEAR, YELLOW URINE, DEBRIDEMENT OF SACRAL WOUND DONE, TOLERATED WELL, WOUND TREATMENTS AND DRESSING CHANGE DONE, PM CARE RENDERED, PM MEDS GIVEN, TURNED AND REPOSITIONED Q2 HOURS, KEPT WARM AND COMFORTABLE IN BED.
[2020-10-09] MEDS: GLUCERNA 1.2 1,000 ML BOTTLE GT PRN (18:29)
--- NOTE | 2020-10-09 19:55 | NUR ---
TELE/RN OPENING NOTE RECEIVED PATIENT RESTING IN BED. NON-VERBAL AT BASELINE. RESPIRATIONS EVEN AND UNLABORED. CONTINUES ON MECHANICAL VENT WITH PATIENT TOLERATING SETTINGS WELL. NO SIGNS OR SYMPTOMS OF PAIN NOTED AT THIS TIME. G-TUBE PATENT WITH 10CC RESIDUAL NOTED. PATIENT TOLERATING GLUCERNA. CALL LIGHT WITHIN REACH. ASPIRATION, FALL AND SAFETY PRECAUTIONS MAINTAINED. WILL CONTINUE TO MONITOR.
[2020-10-09 20:00] VITALS: BP 104/63
[2020-10-10] VITALS: BP 111/48
[2020-10-10 04:00] VITALS: BP 122/56
[2020-10-10 04:52] VITALS: BP 122/56
[2020-10-10] MEDS: BLOOD SUGAR DIAGNOSTIC 1 EACH STRIP IN SCH ×3 (05:09→17:33)
[2020-10-10] MEDS: INSULIN REGULAR, HUMAN 100 UNIT/ML 3 ML VIAL SQ PRN ×2 (05:16→11:13)
--- NOTE | 2020-10-10 06:39 | NUR ---
TELE/RN CLOSING NOTE PATIENT CURRENTLY RESTING IN BED. NON-VERBAL AT BASELINE. RESPIRATIONS EVEN AND UNLABORED. CONTINUES ON MECHANICAL VENT WITH PATIENT TOLERATING SETTINGS WELL. CONTINUES ON GLUCERNA TF WITH PATIENT TOLERATING. BLOOD GLUCOSE THIS AM IS 210. COVERAGE GIVEN PER ORDER. DRESSING CHANGED TO SACRAL WOUND THIS SHIFT. IV ACCESS TO RIGHT UPPER ARM INTACT AND PATENT. CONTINUES ON IVF. CALL LIGHT WITHIN REACH. ASPIRATION, FALL AND SAFETY PRECAUTIONS MAINTAINED. WILL ENDORSE PLAN OF CARE TO ONCOMING SHIFT.
[2020-10-10 07:05] LABS: CALCIUM, SERUM 10.6 mg/dL (8.5-10.1); CARBON DIOXIDE 29 mmol/L (21-32); CHLORIDE 102 mmol/L (98-107); CREATININE 1.8 mg/dL (0.6-1.3); GLUCOSE 232 mg/dL (74-106); POTASSIUM 4.2 mmol/L (3.5-5.1); SODIUM SERUM 136 mmol/L (136-145); UREA NITROGEN, BLOOD 49 mg/dL (7-18)
[2020-10-10 08:00] VITALS: BP 106/66
--- NOTE | 2020-10-10 08:00 | NUR ---
RN Opening note Received patient in bed, awake oriented to person, able to responds physical stimuli, Pt does appears pain or distress. Skin is warm to touch keep clean/dry, no fever, intact IV site, patient is on ventilator, respiratory even and unlabored on O2sat 99%. Kept locked bed with elevated HOB for aspiration precaution also ensure airway and lowest bed for safety. Call light within reach, will continue to monitor.
[2020-10-10] MEDS: FAMOTIDINE (20 MG) 20 MG TABLET GT SCH (08:54)
[2020-10-10] MEDS: ASPIRIN 81 MG TAB.CHEW GT SCH (08:54)
[2020-10-10] MEDS: TAMSULOSIN 0.4 MG CAP.SR.24H GT SCH (08:54)
[2020-10-10] MEDS: CHOLECALCIFEROL 1,000 UNIT TABLET (VIT D3) GT SCH (08:54)
[2020-10-10] MEDS: LINAGLIPTIN 5 MG TABLET GT SCH (08:54)
[2020-10-10] MEDS: FINASTERIDE (5 MG) 5 MG TABLET GT SCH (08:54)
[2020-10-10] MEDS: AMLODIPINE BESYLATE 5 MG TABLET PO SCH ×2 (08:54→17:00)
[2020-10-10] MEDS: DAKINS QUARTER STRENGTH (0.125%) 480 ML BOTTLE TOP SCH (08:55)
[2020-10-10] MEDS: CLOTRIMAZOLE 1% 15 GM TUBE TP SCH ×2 (08:55→17:00)
[2020-10-10] MEDS: HYDROGEL DRESSING 90 GM TUBE TP SCH (08:55)
[2020-10-10] MEDS: CLONIDINE HCL 0.1 MG TABLET GT SCH (08:56)
[2020-10-10] MEDS: hydrALAZINE HCL 50 MG TABLET GT SCH ×3 (08:56→17:00)
[2020-10-10] MEDS: AMIODARONE HCL 200 MG TABLET GT SCH (08:56)
[2020-10-10] MEDS: GLUCERNA 1.2 1,000 ML BOTTLE GT PRN (11:46)
[2020-10-10 12:00] VITALS: BP 111/76
--- NOTE | 2020-10-10 13:21 | NUR ---
Patient discharge to [facility], given report Felicia/KEYBOARDING CLERK include continue to Vanco IV q24 x 7days more.
[2020-10-10 16:00] VITALS: BP 98/47
[2020-10-10] MEDS ORDERED: VANCOMYCIN 0.75 GM in IV D5W 250 ML IV SCH (18:00)
--- NOTE | 2020-10-10 18:22 | NUR ---
Patient was suppose to discharge this afternoon and Vanco IV is not available.
--- NOTE | 2020-10-10 18:46 | NUR ---
RN closing Patient is in bed resting, does no appears distress or discomfort. Skin is warm to touch, keep clean/dry, changed wound dressing on sacral. Respiratory even and unlabored, O2sat 100% with ventilator. Kept elevated HOB for ensure air way and aspiration precaution and lowest bed for safety. 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
--- NOTE | 2020-10-10 20:10 | NUR ---
RN NOTES PT. LEFT VIA AMBULANCE, V/S STABLE, NOT IN DISTRESS, PT LEFT ON STABLE CONDITION
== END 2020-10-10 20:10 | DRG 673 ==
LOC: ER 21:39 → TRANSITION 09-28 00:17 → TELE1 09-28 01:04 → TELE 09-29 18:25
PROVIDERS: ATTEND Internal Medicine
PROC: 5A1955Z Respiratory Ventilation, Greater than 96 Consecutive Hours (ICD-10-PCS; principal; 2020-09-28)
PROC: 05H933Z Insertion of Infusion Device into Right Brachial Vein, Percutaneous Approach (ICD-10-PCS; 2020-09-30)
PROC: 0JB70ZZ Excision of Back Subcutaneous Tissue and Fascia, Open Approach (ICD-10-PCS; 2020-10-04)
PROC: 0JB70ZZ Excision of Back Subcutaneous Tissue and Fascia, Open Approach (ICD-10-PCS; 2020-10-09)
DX: N17.0 Acute kidney failure with tubular necrosis (principal); L89.154 Pressure ulcer of sacral region, stage 4; J96.10 Chronic respiratory failure, unspecified whether with hypoxia or hypercapnia; Z99.11 Dependence on respirator [ventilator] status; E87.0 Hyperosmolality and hypernatremia; I69.359 Hemiplegia and hemiparesis following cerebral infarction affecting unspecified side; M86.9 Osteomyelitis, unspecified; L97.829 Non-pressure chronic ulcer of other part of left lower leg with unspecified severity; L97.819 Non-pressure chronic ulcer of other part of right lower leg with unspecified severity; G93.40 Encephalopathy, unspecified; I12.9 Hypertensive chronic kidney disease with stage 1 through stage 4 chronic kidney disease, or unspecified chronic kidney disease; N18.9 Chronic kidney disease, unspecified; I48.91 Unspecified atrial fibrillation; N40.0 Benign prostatic hyperplasia without lower urinary tract symptoms; D63.8 Anemia in other chronic diseases classified elsewhere; E11.22 Type 2 diabetes mellitus with diabetic chronic kidney disease; F03.90 Unspecified dementia, unspecified severity, without behavioral disturbance, psychotic disturbance, mood disturbance, and anxiety; R13.10 Dysphagia, unspecified; D72.829 Elevated white blood cell count, unspecified; I25.10 Atherosclerotic heart disease of native coronary artery without angina pectoris; Z93.0 Tracheostomy status; Z93.1 Gastrostomy status; L89.319 Pressure ulcer of right buttock, unspecified stage; L97.529 Non-pressure chronic ulcer of other part of left foot with unspecified severity; L89.620 Pressure ulcer of left heel, unstageable; Z20.822 Contact with and (suspected) exposure to COVID-19; E11.69 Type 2 diabetes mellitus with other specified complication; E78.5 Hyperlipidemia, unspecified; I25.2 Old myocardial infarction; Z95.1 Presence of aortocoronary bypass graft; Z88.1 Allergy status to other antibiotic agents; Z88.2 Allergy status to sulfonamides; Z88.8 Allergy status to other drugs, medicaments and biological substances; Z91.048 Other nonmedicinal substance allergy status; Z79.899 Other long term (current) drug therapy; Z79.4 Long term (current) use of insulin; Z79.01 Long term (current) use of anticoagulants; Z79.82 Long term (current) use of aspirin; E11.621 Type 2 diabetes mellitus with foot ulcer; N13.9 Obstructive and reflux uropathy, unspecified; E86.1 Hypovolemia; S90.31XA Contusion of right foot, initial encounter; X58.XXXA Exposure to other specified factors, initial encounter; Y92.9 Unspecified place or not applicable; M77.32 Calcaneal spur, left foot; M77.31 Calcaneal spur, right foot; L90.9 Atrophic disorder of skin, unspecified; B35.1 Tinea unguium; L60.2 Onychogryphosis; I87.8 Other specified disorders of veins; E11.51 Type 2 diabetes mellitus with diabetic peripheral angiopathy without gangrene; I70.248 Atherosclerosis of native arteries of left leg with ulceration of other part of lower leg; I70.238 Atherosclerosis of native arteries of right leg with ulceration of other part of lower leg; I70.0 Atherosclerosis of aorta; E87.5 Hyperkalemia; Z87.820 Personal history of traumatic brain injury
CPT/HCPCS: 31720; 36415; 71045-TC; 73600-TC; 76770-TC; 80048-TC; 80053-TC; 80061-TC; 80076-TC; 80202-TC; 81001; 82550-TC; 82570-TC; 82728-TC; 82962-TC; 83540-TC; 83605-TC; 83615-TC; 83735-TC; 83880; 83970; 84100-TC; 84155; 84155-TC; 84165; 84300-TC; 84439-TC; 84443-TC; 84484-TC; 85025-TC; 85378-TC; 85730-TC; 86140-TC; 87040-TC; 87070-TC; 87081-TC; 87086-TC; 87186-TC; 93307-TC; 94002-TC; 94003-TC; 94760-TC; 94762-TC; 94799-TC; 99082-TC; A4623; A6248; A6253; A7526; C9803; G0378; J1644; J1815; J1940; J2185; J2405; J3370; J3490; J7030; J7060; J7070; U0003

== ENCOUNTER 2020-11-14 20:19 | Emergency (ER) | payer OTHER ==
[~2020-11-14] VITALS: Ht 162.6 cm; Wt 78.9 kg
[~2020-11-14 20:19] MED LIST: AMIO200T5 GT; AMLO5TAB4 PO; ASPI-1169 GT; CARV25TA2 GT; CHOL200074 GT; CLON0.1T GT; EPOE40002 SQ; FAMO20TA8 GT; FINA5TAB3 GT; HEPA500039 SQ; HYDR-4077 GT; INSU100I26 SQ; INSU100V27 SQ; LINA5TAB GT; PRED20TA GT; SIMV-46 GT; TAMS-12 GT
--- NOTE | 2020-11-14 20:41 | NUR ---
VENT SETTINGS AC 12, TV 450, PEEP 5
[2020-11-14] MEDS ORDERED: IV NS 0.9% 1,000 ML BAG IV ONE (21:00)
--- NOTE | 2020-11-14 21:12 | NUR ---
JACQUELINE FROM [facility] TO ER BED 7. BED BOUND, NON VERBAL WITHDRAWS FROM PAIN STIMULI. SENT BY PMD FOR ABNORMAL LABS. PT IS NOTED WITH WBC OF 24.20 TODAY FROM 18 YESTERDAY. RECTAL TEMP NOTED @ 100.3. PER FACILITY REPORT, PT COMPLETED ATB TX A WEEK AGO FOR UTI. PT IS RENETTA AND TRACH DEPENDENT. ARRIVE WITH A MIDLINE ON HIS EDMUNDO. METZGER CATH NOTED AND WELL A GT. WAS AT THE BEDSIDE FOR EVAL. ORDERS RECEIVED, NOTED AND CARRIED OUT. URINE COLLECTED. COVID SWAB DONE.
[2020-11-14 21:19] LABS: BASOPHILS % (AUTO) 0.1 % (0.0-2.0); EOSINOPHILS % (AUTO) 9.4 % (0.0-6.0); HEMATOCRIT 27 % (39-51); HEMOGLOBIN 8.5 g/dL (13.5-17.5); LYMPHOCYTES # (AUTO) 1.5 /CMM (0.8-4.8); LYMPHOCYTES % (AUTO) 6.7 % (20.0-44.0); MEAN CORPUSCULAR HGB CONC 31 g/dl (31.0-36.0); MEAN CORPUSCULAR VOLUME 93 fL (80-96); MONOCYTES # (AUTO) 1.6 /CMM (0.1-1.30); MONOCYTES % (AUTO) 7.2 % (2.0-12.0); NEUTROPHILS # (AUTO) 16.6 /CMM (1.8-8.9); NEUTROPHILS % (AUTO) 76.6 % (43.0-81.0); PLATELET COUNT (AUTO) 414 /CMM (150-450); RED BLOOD CELL COUNT(AUTO) 2.93 MIL/uL (4.5-6.0); WHITE BLOOD COUNT (AUTO) 21.8 K/uL (4.3-11.0)
[2020-11-14] MEDS ORDERED: VANCOMYCIN 1 GM in IV D5W 250 ML IV ONE (21:30)
[2020-11-14] MEDS ORDERED: ACETAMINOPHEN 650 MG/SUPP.RECT RC ONE ×2 (21:30→21:34)
[2020-11-14] MEDS ORDERED: CEFEPIME 1 GM in IV D5W 50 ML IV ONE (21:30)
[2020-11-14] MEDS ORDERED: CEFEPIME 1 GM VIAL ONE (21:34)
[2020-11-14] MEDS ORDERED: VANCOMYCIN 1 GM VIAL ONE (21:34)
--- NOTE | 2020-11-14 21:45 | NUR ---
CALLED [facility], AWAITING MD CALL BACK
[2020-11-14 21:59] LABS: BILIRUBIN,URINE NEGATIVE (NEGATIVE); COLOR,URINE YELLOW (YELLOW); LEUKOCYTE ESTERASE ,URINE MODERATE (NEGATIVE); NITRITE, URINE NEGATIVE (NEGATIVE); PROTEIN,URINE 100 mg/dl (NEGATIVE); UGLUCOSE NEGATIVE (NEGATIVE); UROBILINOGEN,URINE 0.2 EU/dL (0.2)
--- NOTE | 2020-11-14 22:01 | NUR ---
DR RODRIGUEZ SPEAKING WITH [facility]
--- NOTE | 2020-11-14 22:04 | NUR ---
[id number] DIRECT NUMBER FOR MARY
[2020-11-14 22:07] LABS: BACTERIA,URINE 4+ /HPF (None Seen); WBC,URINE 21-50 /HPF (0-3)
[2020-11-14 22:08] LABS: SQUAMOUS EPITHELIAL CELL,UR 0-2 /HPF (None Seen); URINE AMORPHOUS URATE Few /HPF (None Seen)
[2020-11-14 22:34] LABS: ALANINE AMINOTRANSFERASE 18 U/L (12-78); ALBUMIN 1.7 g/dL (3.4-5.0); ALKALINE PHOSPHATASE 80 U/L (46-116); ASPARTATE AMINOTRANSFERASE 27 U/L (15-37); BILIRUBIN,DIRECT 0.1 mg/dL (0.0-0.2); BILIRUBIN,TOTAL 0.2 mg/dL (0.2-1.0); CARBON DIOXIDE 38 mmol/L (21-32); CHLORIDE 109 mmol/L (98-107); GLUCOSE 89 mg/dL (74-106); SODIUM SERUM 149 mmol/L (136-145); TOTAL PROTEIN, SERUM 6.7 g/dL (6.4-8.2); UREA NITROGEN, BLOOD 84 mg/dL (7-18)
--- NOTE | 2020-11-14 22:35 | NUR ---
LAB CALLED ERGARDING NEGATIVE COVID RESULT.
--- NOTE | 2020-11-14 22:37 | NUR ---
[facility]
--- NOTE | 2020-11-14 22:54 | NUR ---
[facility]
--- NOTE | 2020-11-14 22:57 | NUR ---
BRAYDEN ANDERSON TALKING TO DR. RADER FROM [facility] REGARDING PT.
--- NOTE | 2020-11-14 23:30 | NUR ---
ANMOL, PT'S DAUGHTER AWARE THAT HER DAD IS GOING TO BE ADMITTED.
--- NOTE | 2020-11-15 00:05 | NUR ---
PATIENT TURNED TO THE LEFT SIDE.
--- NOTE | 2020-11-15 01:02 | NUR ---
TRANSFER INFORMATION: PT ACCEPTED AT [facility] ACCEPTING MD MARTINEZ PT WILL GO TO ROOM 2101-A PHONE# FOR REPORT TRANSPORT : PRN CCT ETA [phone]
[2020-11-15 01:47] VITALS: BP 141/66
--- NOTE | 2020-11-15 01:52 | NUR ---
REPORT GIVEN TO BERENICE BURNETT AT [address] [place] [address] FOR ANNI.
--- NOTE | 2020-11-15 02:04 | NUR ---
REPORT GIVEN TO TRANSPORT TEAM FOR ANNI.
== END 2020-11-15 02:11 | disposition short-term general hospital (02) ==
LOC: ER 20:19
DX: A41.9 Sepsis, unspecified organism (principal); N39.0 Urinary tract infection, site not specified; R65.20 Severe sepsis without septic shock; N17.9 Acute kidney failure, unspecified; Z20.822 Contact with and (suspected) exposure to COVID-19; F03.90 Unspecified dementia, unspecified severity, without behavioral disturbance, psychotic disturbance, mood disturbance, and anxiety; Z93.0 Tracheostomy status; J96.10 Chronic respiratory failure, unspecified whether with hypoxia or hypercapnia; Z99.11 Dependence on respirator [ventilator] status; Z93.1 Gastrostomy status; I69.359 Hemiplegia and hemiparesis following cerebral infarction affecting unspecified side; I25.2 Old myocardial infarction; E78.5 Hyperlipidemia, unspecified; Z88.6 Allergy status to analgesic agent; Z88.1 Allergy status to other antibiotic agents; Z88.2 Allergy status to sulfonamides; E87.0 Hyperosmolality and hypernatremia
CPT/HCPCS: 31720; 36415; 71045; 80048; 80076; 81001; 83605; 84484; 85025; 85730; 87040 ×2; 87077; 87081; 87086; 87186; 87426; 93005; 94002; 96365; 96368; 99291; C9803; J0692; J3370; J7030; J7060